=== PATIENT | female | born 1980 | race Caucasian/White ===

== ENCOUNTER 2019-05-02 14:55 | Emergency (ER) | payer BC, SELFPAY ==
--- NOTE | ~2019-05-02 | US_ITS ---
EXAMINATION: US right upper quadrant EXAM DATE: 05/02/2019 15:42 INDICATION: Right upper quadrant pain. TECHNIQUE: Multiple grayscale and Doppler images of the abdomen right upper quadrant were obtained (b y a technologist who performed the scan) and subsequently reviewed. Comparison is made to prior exami nation from 08/04/2011. FINDINGS: The pancreatic head and body are normal in appearance. The pancreatic tail is not visualized. The l iver has normal echogenicity and contour. There are no focal liver lesions identified. There is no evidence of intrahepatic biliary duct dilation. Portal venous flow was seen in the hepatopedal, nor mal direction and has normal Doppler waveform. No right-sided hydronephrosis. Common bile duct measures 5 mm, which is normal. The gallbladder wall is normal in thickness, with ex pected amount of distention. No sonographic evidence of pericholecystic fluid. There is a 2 cm gall stone. Technologist reports patient had right upper quadrant tenderness. IMPRESSION: 1. Cholelithiasis and right upper quadrant tenderness demonstrated. No pericholecystic fluid, gallbl adder wall thickening or gallbladder distention. If symptoms persist, consider HIDA scan. Reviewed, dictated and finalized at location B. MIX OPERATOR IMPRESSION: 1. Cholelithiasis and right upper quadrant tenderness demonstrated. No pericho lecystic fluid, gallbladder wall thickening or gallbladder distention. If sympt oms persist, consider HIDA scan.
[2019-05-02 14:59] VITALS: BP 144/83; PULSE 100; RESP 16; TEMP 36.8; O2SAT 99
--- NOTE | 2019-05-02 15:20 | ED.ABDPAIN ---
HPI - Abdominal Pain General Chief Complaint: Abdominal Pain Stated Complaint: flank pain Time Seen by Provider: 05/02/19 15:01 Source: patient Mode of arrival: ambulatory Limitations: no limitations History of Present Illness HPI narrative: Patient is a 38-year-old female who presents to emergency department for evaluation of abdominal pain that is been present now for the last 2 weeks off and on worse with food patient notes aching pain and is now having pain in the right CVA region patient had Dairy Murray today and notes that the pain is worsened and now has associated nausea. Patient also notes feeling dizzy. Patient has taken Tums with no improvement Related Data Allergies Allergy/AdvReac Type Severity Reaction Status Date / Time naproxen Allergy Unknown hallucinati Verified 05/02/19 17:01 ons prednisone Allergy Unknown Skin Verified 05/02/19 17:01 Reaction No Known Allergies Allergy Verified 05/02/19 17:01 Review of Systems Review of Systems: All systems reviewed & are unremarkable except as noted in HPI and below PMFSH Past Medical History Medical History (Updated 05/02/19 @ 17:52 by Corey Benjamin PA-C) Obesity Family History Family History Father Diabetes mellitus Family history of hypercholesterolemia Hypertension Family history of cardiovascular disease Acute myocardial infarction Mother Hypertension Grandparent Acute myocardial infarction, Onset Age: 39 Cerebrovascular accident Carcinoma of colon Family history of malignant neoplasm of breast Social History Social History Smoking status: Never smoker Alcohol intake: current Exam Narrative: Exam Narrative: GENERAL: Well-appearing, obese, and in no acute distress. HEAD: Normocephalic, atraumatic. EYES: PERRLA and EOMI. ENT: Nares clear, no rhinorrhea or epistaxis. Mucous membranes moist. Oropharynx without tonsillar hypertrophy exudate or other lesions. CHEST: Clear to auscultation. No respiratory distress. No wheezes rales or rhonchi HEART: Regular rate and rhythm. No murmur heard. Normal peripheral pulses. ABDOMEN: Soft, right upper quadrant abdominal tenderness to palpation, nondistended, normal active bowel sounds. EXTREMITIES: Normal range of motion. No edema. SKIN: Warm, dry, no rash. NEURO: No focal deficits. Alert and oriented x3. PSYCH: Normal mood and affect. Course Course Emergency Course: Patient in the room in no distress aware of case findings treatment plan and diagnosis agreeing to follow-up as directed or to return if symptoms worsen or concerns Consultations Consultation #1: Discussed case with general surgery who will follow patient in clinic Vital Signs Vital signs: Vital Signs Temperature 98.2 F 05/02/19 14:59 Pulse Rate 100 05/02/19 14:59 Respiratory Rate 16 05/02/19 14:59 Blood Pressure 144/83 H 05/02/19 14:59 Pulse Oximetry 99 05/02/19 14:59 Temperature 98.2 F 05/02/19 14:59 Pulse Rate 86 05/02/19 17:14 Respiratory Rate 18 05/02/19 17:14 Blood Pressure 142/73 H 05/02/19 17:14 Pulse Oximetry 99 05/02/19 17:14 MDM - Abdominal Pain MDM Narrative Medical decision making narrative: Patient in the room without high risk changes in the blood work or imaging resting comfortably will follow with general surgery. Patient afebrile nontoxic-appearing without emesis provided with reasons to return Lab Data Result diagrams: 05/02/19 15:13 05/02/19 15:16 Labs: Lab Results 05/02/19 05/02/19 05/02/19 Range/Units 15:13 15:16 15:16 WBC 13.1 H (4.5-10.0) K/mm3 RBC 4.89 (4.2-5.4) M/mm3 Hgb 14.8 (12.0-15.0) g/dL Hct 44.6 (37.0-47.0) % MCV 91.2 (80-100) fl MCH 30.3 (26-34) pg MCHC 33.2 (32-36) g/dl RDW 12.7 (11.5-14.5) % Plt Count 397 H (150-375) k/mm3 MPV 10.5 H (7.4-10
--- NOTE | 2019-05-02 15:21 | PC.NURSE ---
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
[2019-05-02] MEDS: MORPHINE SULFATE 4 MG/ML INJ IV PUSH (15:25)
[2019-05-02] MEDS: LIDOCAINE HCL 2% VISC SOLN 15 ML UDC 20 ML PO (15:29)
[2019-05-02] MEDS: LACTATED RINGERS 1,000 ML 999 ML IV CONT (15:30)
[2019-05-02] MEDS: ONDANSETRON INJ 4 MG/2 ML VIAL IV PUSH (15:30)
[2019-05-02 15:34] LABS: Alanine Aminotransferase 25 U/L (4-35); Albumin Level 4.9 g/dL (3.5-5.1); Alkaline Phosphatase 55 U/L (38-126); Aspartate Amino Transferase 30 U/L (14-36); Bilirubin,Total 0.5 mg/dL (0.2-1.3); Blood Urea Nitrogen 10 mg/dL (7-17); Calcium 9.7 mg/dL (8.4-10.2); Carbon Dioxide 26 mmol/L (22-30); Chloride 98 mmol/L (98-107); Estimated CRCL calculation 96 ml/min; Estimated Glomerular Filt Rate > 60; Glucose 107 mg/dL (65-105); Lipase 91 U/L (23-300); Potassium 3.9 mmol/L (3.4-5.0); Sodium 139 mmol/L (137-145)
[2019-05-02 15:35] LABS: Lactic Acid Reflex 1.3 mmol/L (0.7-2.1)
--- NOTE | 2019-05-02 16:00 | PC.NURSE ---
pt unable to void at this time.
[2019-05-02 16:11] LABS: Basophils Absolute Auto 0.1 K/mm3 (0.0-0.1); Basophils Percent Auto 0.9 % (0.2-1.2); Eosinophils Absolute Auto 0.4 K/mm3 (0-0.3); Eosinophils Percent Auto 3.4 % (0-4.4); Hematocrit 44.6 % (37.0-47.0); Hemoglobin 14.8 g/dL (12.0-15.0); Immature Granulocyte Absolute 0.06 K/mm3 (0.00-0.031); Immature Granulocyte Percent A 0.5 % (0-0.5); Lymphocytes Absolute Auto 5.23 K/mm3 (0.9-3.2); Lymphocytes Percent Auto 39.9 % (18.3-44.2); Mean Corpuscular HGB Conc 33.2 g/dl (32-36); Mean Corpuscular Hemoglobin 30.3 pg (26-34); Mean Corpuscular Volume 91.2 fl (80-100); Mean Platelet Volume 10.5 fl (7.4-10.4); Monocytes Absolute Auto 1.1 K/mm3 (0.1-0.6); Monocytes Percent Auto 8.6 % (2.6-8.5); Neutrophils Absolute Auto 6.1 K/mm3 (1.3-6.7); Neutrophils Percent Auto 46.7 % (45.5-73.1); Platelet Count Result 397 k/mm3 (150-375); Red Blood Count 4.89 M/mm3 (4.2-5.4); Red Cell Distribution Width 12.7 % (11.5-14.5); White Blood Count 13.1 K/mm3 (4.5-10.0)
--- NOTE | 2019-05-02 16:39 | PC.NURSE ---
pt ab w/ yaw gait to provided a urine sample.
[2019-05-02 16:59] LABS: Add Urine Microscopic? YES; Appearance Urine Cloudy (Clear); Bacteria Urine Trace /hpf; Bilirubin Urine Negative (Negative); Blood Urine Negative (Negative); Color Urine Straw (Yellow); Glucose Urine UA Negative (Negative); Ketones Urine Negative (Negative); Leukocyte Esterase Ur 1+ LEU/UL (Negative); Mucus Urine Rare /lpf; Nitrate Urine Negative (Negative); Protein Urine Negative (Negative); Specific Grav Ur 1.008 (1.001-1.035); Squamous Epithelial Cell Urine Many /hpf (Few); Urobilinogen Urine Negative mg/dL (<2.0)
--- NOTE | 2019-05-02 16:59 | PC.NURSE ---
pt asking about results. edp notified.
[2019-05-02] MEDS: MORPHINE SULFATE 2 MG/ML INJ IV PUSH (17:11)
[2019-05-02 17:14] VITALS: BP 142/73; PULSE 86; RESP 18; O2SAT 99
--- NOTE | 2019-05-02 17:27 | PC.NURSE ---
called to patient room. pt c/o hives to the left arm after getting morphine. hives noted to the left arm, pt denies sob. hali yanez notified.
[2019-05-02] MEDS: FAMOTIDINE 20 MG/2 ML VIAL IV PUSH (17:33)
--- NOTE | 2019-05-02 17:54 | PC.NURSE ---
pt given second dose of morphine iv. pt called out reporting she had hives. edp notified of pt reaction. reaction documented in pt's chart.
[2019-05-02 18:00] VITALS: BP 123/68; PULSE 87; RESP 17; O2SAT 96
== END 2019-05-02 18:00 | disposition home or self-care (01) ==
PROVIDERS: Emergency Medicine Emergency Medical Services; Emergency Provider Emergency Medicine
DX: K80.20 Calculus of gallbladder without cholecystitis without obstruction (principal)
CPT/HCPCS: 36415; 76705; 80053; 81001; 81025; 83605; 83690; 85025; 87077; 87086; 87088; 87186; 96361; 96374; 96375; 96376; 99284; J0131; J1200; J2270; J2405; J7120

== ENCOUNTER 2019-05-05 10:15 | Outpatient (CLI) | payer BC, SELFPAY ==
[2019-05-05 10:57] LABS: Amylase 47 U/L (30-110)
== END 2019-05-05 10:16 | disposition home or self-care (01) ==
PROVIDERS: PCP Physician Assistant; Visit Provider Surgery
DX: K80.20 Calculus of gallbladder without cholecystitis without obstruction (principal); Z01.812 Encounter for preprocedural laboratory examination
CPT/HCPCS: 36415; 82150; 86850; 86900; 86901

== ENCOUNTER 2019-05-09 00:42 | Day surgery (SDC) | payer BC, SELFPAY ==
[2019-05-05 09:43] VITALS: BMI 38.6
[2019-05-09] VITALS (11 sets, daily range): BP systolic 103–127; BP diastolic 58–65; PULSE 73–86; RESP 10–24; TEMP 36.2–37.5; O2SAT 93–100
--- NOTE | 2019-05-09 09:32 | WPDANESEPPF ---
Anes - Initial Pre Proc Eval Procedure: Operation Date: 05/09/19 15:00 Proposed Procedures p Laparoscopic Cholecystectomy, Possible Open - Mesfin Wong DO Date/Time: 05/09/19 09:32 Surgeon: Mesfin Wong DO Pre Op Diagnosis: Symptomatic Cholelithiasis Patient Data Age: 38 Gender: F Height: 1.63 m Weight: 102.06 kg Allergies Allergy/AdvReac Type Severity Reaction Status Date / Time morphine Allergy Mild Hives Verified 05/09/19 12:56 naproxen AdvReac Mild hallucinati Verified 05/09/19 12:56 ons Home Medications Medication Instructions Recorded Confirmed Type hydrocodone-acetaminophen 1 tablet PO Q6H PRN #20 tablet 05/02/19 05/09/19 Rx ondansetron 4 mg PO Q6H #7 tablet 05/02/19 05/05/19 Rx echinacea 380 mg capsule 380 mg PO 2XW 05/03/19 05/09/19 History hydroxyzine HCl 10 mg tablet 10 mg PO TID PRN 05/03/19 05/05/19 History metformin 500 mg tablet 500 mg PO DAILY 05/03/19 05/09/19 History prenat.vits,chiara,wly-vhym-rlpke 1 tablet PO 2XW 05/03/19 05/09/19 History Lacto.acidophilus-Bif.animalis 1 cap PO 3XW 05/05/19 05/09/19 History [Daily Probiotic] cranberry fruit concentrate [Azo 250 mg PO 3XW 05/05/19 05/09/19 History Cranberry] fenugreek seed extract 500 mg PO 2XW 05/05/19 05/09/19 History plant stanol roseanne [Cholest Off] 450 mg PO DAILY 05/05/19 05/09/19 History Patient hx anesthesia problems: none Family hx anesthesia problems: none PMFSH Past Medical History Medical History (Updated 05/09/19 @ 09:33 by Marco Antonio Jacinto MD) Anxiety Depression GERD (gastroesophageal reflux disease) Hyperlipidemia Obesity PCOS (polycystic ovarian syndrome) Surgical History Surgical History History of carpal tunnel release of both wrists 05/2018 and 08/2018 History of surgery on arm As a child Labral tear of right hip joint Underwent surgical repair in 05/2009 Social History Social History Smoking status: Never smoker Alcohol intake: current Gender identity (if verbalized by the patient): Female Anes - Eval Final PreProcedure Day of Procedure 05/09/19 09:32 Patient weight: obese Heart: regular rate and rhythm Lungs: clear to auscultation and normal air movement Airway: Mallampati scale class II Neurological: alert and oriented Last oral intake: >/= 8 hours ASA classification: III Emergent: no Anesthetic plan: proceed Anesthesia type and monitoring: general ETT Informed Consent: The patient's anesthetic plan and its attendant risks and benefits were discussed with the patient/family/POA. Questions were solicited and answers provided to the satisfaction of the patient/family/POA.
[2019-05-09] MEDS: LACTATED RINGERS 1,000 ML 30 ML IV CONT ×2 (13:15→15:39)
[2019-05-09] MEDS: IBUPROFEN IV 800 MG/200 ML 800 MG/200 ML BAG 400 MG IVPB (13:29)
--- NOTE | 2019-05-09 14:22 | WPDHPUPDATE1 ---
History and Physical Update Update Date/Time: 05/09/19 14:22 History and Physical has been reviewed, including an updated exam of the patient. There are NO changes in the patient's condition. Risks, benefits, and alternatives have been discussed and questions answered. Patient agrees to proceed with procedure.
--- NOTE | 2019-05-09 14:31 | SUR.PREOP ---
Up to bathroom.
[2019-05-09] MEDS: ceFAZolin 2 GM/D5W 50 ML 2 GM/50 ML BAG IVPB (14:38)
[2019-05-09] MEDS: BUPIVACAINE/EPINEPHRINE 0.5% 30 ML VIAL INFILTRATE (14:55)
--- NOTE | 2019-05-09 15:37 | PM.PROC ---
Procedure Note - Detailed Date of procedure: 05/09/19 Pre-op diagnosis: Symptomatic Cholelithiasis Post-op diagnosis: same Procedure performed: Laparoscopic Cholecystectomy Description of procedure: Procedure as well as risks, benefits, and alternatives were discussed with patient. Written consent was obtained and placed in chart prior to procedure. The patient was brought back to surgical suite. Patient was placed in supine position on operating table. Time-out was done to confirm patient and procedure. Patient was then intubated by the anesthesia department. Abdomen was prepped and draped in sterile fashion using chlorhexidine prep. 0.5% bupivacaine with epinephrine was infiltrated at each site of incision. A 5 millimeter incision was made near the umbilicus, and a 5 millimeter Optiview trocar was advanced through the abdominal layers under direct visualization. Once inside the abdominal cavity, carbon dioxide was insufflated to create a pneumoperitoneum. The camera was inserted and the abdomen was inspected. No immediate abnormalities were identified. The patient was placed in reverse Trendelenburg position and rotated slightly to the left. An 11 millimeter incision was made in the subxiphoid region, and an 11 millimeter trocar was inserted under direct visualization. Two 5 millimeter incisions were made in the right upper quadrant, and two 5 millimeter trocars were inserted under direct visualization. The gallbladder was identified and grasped at the fundus and retracted superiorly. It was then grasped at the infundibulum retracted laterally. Careful dissection around the neck of the gallbladder was performed using blunt dissection with a [place] grasper and hook electrocautery. The cystic duct was identified, and a window was created behind it. The cystic artery was also identified and a window was created behind it. The critical view of safety was identified, visualizing the cystic duct running directly into the neck of the gallbladder, and the cystic artery running directly into the wall of the gallbladder. A 5 millimeter clip pipe insulator was then used to place 2 clips proximally and 1 clip distally on both the cystic duct and cystic artery. They were then both transected using endoscopic scissors. Once safely away from the iggy hepatitis, the gallbladder was dissected free from the liver bed using hook electrocautery. Hemostasis was achieved along the way. The gallbladder was removed completely and then removed through the subxiphoid port. The liver bed was then inspected. Hemostasis appeared adequate, and our clips appeared secure. The area was gently irrigated with sterile saline. No other abnormalities were seen. The patient was flattened out in bed, and 1 final inspection was made around the abdominal cavity. The subxiphoid port was removed, and a Elio Rasheeda cone was used to approximate the fascia with an 0-Vicryl simple interrupted suture. The remaining ports were then removed under direct visualization, the camera was removed, and the pneumoperitoneum was released. The skin of the incisions was approximated using 4-0 Monocryl subcuticular sutures. Exofin glue was applied on top. The patient was then awakened from anesthesia, extubated, and transferred to recovery. Anesthesia: GETA and local (0.5% bupivicaine with epi) Surgeon: Mesfin Wong DO Estimated blood loss (mL): 5 Drains: No Packing: No Pathology: yes Complications: No immediate complications Condition: stable (Patient tolerated procedure well, and is currently resting comfortably in recovery.) Disposition: same day Findings: This is a 38-year-old woman who presented with a recent finding of cholelithiasis. She presented to the emergency department 1 week ago and was complaining of epigastric and right upper quadrant pain after eating at that time. Ultrasound in the emergency department showed evidence of cholelithiasis without evidence of gallbladder wall thick
[2019-05-09] MEDS: ONDANSETRON INJ 4 MG/2 ML VIAL IV PUSH (16:00)
[2019-05-09] MEDS: SCOPOLAMINE 1.5 MG PATCH TRANSDERM (16:30)
[2019-05-09] MEDS: HALOPERIDOL LACTATE 5 MG/ML VIAL 1 MG IV PUSH (16:41)
--- NOTE | 2019-05-09 17:09 | SUR.PHASEI ---
1708 UPDATED FAMILY IN WAITING ROOM
--- NOTE | 2019-05-09 17:10 | SUR.PHASEI ---
1610 PT VERY NAUSEATED, NOTIFIED DR WHALEN, ORDER FOR A SCOPALAMINE PATCH, 1MG IV HALDOL. 1710 PT DOING BETTER WITH NAUSEA
== END 2019-05-09 18:42 | disposition home or self-care (01) ==
PROVIDERS: PCP Physician Assistant; Visit Provider Surgery
PROC: 0FT44ZZ Resection of Gallbladder, Percutaneous Endoscopic Approach (ICD-10-PCS; CPT 47562; principal; 2019-05-09 15:00)
DX: K80.10 Calculus of gallbladder with chronic cholecystitis without obstruction (principal); E78.5 Hyperlipidemia, unspecified; K21.9 Gastro-esophageal reflux disease without esophagitis; E28.2 Polycystic ovarian syndrome; F41.8 Other specified anxiety disorders; Z79.84 Long term (current) use of oral hypoglycemic drugs; E66.9 Obesity, unspecified; Z68.38 Body mass index [BMI] 38.0-38.9, adult
CPT/HCPCS: 47562; 88304; A9270; J0690; J1100; J1630; J1741; J2250; J2405; J2704; J2710; J3010; J7030; J7120

== ENCOUNTER 2019-11-22 08:08 | Outpatient (CLI) | payer BC, SELFPAY ==
--- NOTE | ~2019-11-22 | US_ITS ---
US retroperitoneal comp 11/22/2019 09:03 Procedure: Realtime transabdominal ultrasound of the kidneys and bladder. Indication: Acute flank pain Comparison: No prior studies for comparison. Findings: Renal echotexture is normal bilaterally without hydronephrosis, contour deforming mass or r enal calculus. The right kidney measures 12.5 cm and left kidney measures 10.8 cm. Bladder within no rmal limits. Impression: 1: Unremarkable renal ultrasound. No stones, masses or hydronephrosis. Reviewed, dictated and finalized at location B. Impression: 1: Unremarkable renal ultrasound. No stones, masses or hydronephrosis.
== END 2019-11-22 08:09 | disposition home or self-care (01) ==
PROVIDERS: PCP Family Medicine; Visit Provider Nurse Practitioner Adult Health
DX: R10.9 Unspecified abdominal pain (principal)
CPT/HCPCS: 76770

== ENCOUNTER 2020-03-26 14:57 | Outpatient (CLI) | payer BC, SELFPAY ==
--- NOTE | ~2020-03-26 | XR_ITS ---
EXAMINATION: XR shoulder RT min 2V DATE: 03/26/2020 15:20 INDICATION: Right shoulder pain. TECHNIQUE: 4 views of right shoulder were obtained. COMPARISON: Right shoulder radiographs 04/12/2009 FINDINGS: Bone alignment is normal. No fracture. Joint spaces are well maintained. IMPRESSION: 1. Normal right shoulder. Reviewed, dictated and finalized at location B. SENIOR RESEARCH SCIENTIST IMPRESSION: 1. Normal right shoulder.
== END 2020-03-26 14:58 | disposition home or self-care (01) ==
PROVIDERS: PCP Family Medicine; Visit Provider Physician Assistant Medical
DX: M25.511 Pain in right shoulder (principal)
CPT/HCPCS: 73030

== ENCOUNTER 2020-05-04 10:36 | Outpatient (CLI) | payer BC, SELFPAY ==
--- NOTE | ~2020-05-04 | MR_ITS ---
EXAMINATION: MR shoulder RT wo con DATE: 05/04/2020 11:25 INDICATION: Right shoulder pain. TECHNIQUE: Magnetic resonance imaging (MRI) of the right shoulder was performed without intravenous c ontrast. Sequences included axial PD-weighted FS FSE, coronal oblique PD-weighted FS FSE and T2-weigh abebe FS FSE, and sagittal oblique T2-weighted FS FSE and T1-weighted FSE. COMPARISON: Right shoulder radiographs 03/26/2020 FINDINGS: Coracoacromial arch: The acromion undersurface is flat in morphology (type I). There is mild acromioclavicular joint osteo arthritis. There is mild subacromial/subdeltoid bursitis. Rotator cuff: There is mild supraspinatus and infraspinatus tendinopathy. Teres minor tendon is normal. There is mi ld subscapularis tendinopathy. There is no asymmetric fatty atrophy of the rotator cuff muscle bellie s. Biceps tendon and glenoid labrum: Biceps tendon is in bicipital groove. Intra-articular biceps tendon is normal. The glenoid labrum is normal. Fluid: There is no glenohumeral joint effusion. Bones/cartilage: The glenoid cartilage is normal. The humeral head cartilage is normal. IMPRESSION: 1. Mild acromioclavicular joint osteoarthritis. 2. Mild rotator cuff tendinopathy. No tear. 3. Mild subacromial/subdeltoid bursitis. Reviewed, dictated and finalized at location A. ESTATE LISTING CONSULTANT
== END 2020-05-04 10:37 | disposition home or self-care (01) ==
PROVIDERS: PCP Family Medicine; Visit Provider Orthopaedic Surgery
DX: M19.011 Primary osteoarthritis, right shoulder (principal); M75.51 Bursitis of right shoulder
CPT/HCPCS: 73221

== ENCOUNTER 2020-12-05 18:30 | Emergency (ER) | payer BC, SELFPAY ==
--- NOTE | ~2020-12-05 | XR_ITS ---
EXAMINATION: XR hand RT min 3V INDICATION: Right hand pain TECHNIQUE: Three views of the right hand are obtained. COMPARISON: None available FINDINGS: There is no fracture, dislocation, or subluxation. The bones, soft tissues, and joint space s are normal. IMPRESSION: 1. No acute osseous abnormality. Reviewed, dictated and finalized at location A.
[2020-12-05 18:55] VITALS: BP 130/81; PULSE 84; RESP 16; TEMP 36.6; O2SAT 99
[2020-12-05 20:16] LABS: Basophils Absolute Auto 0.1 K/mm3 (0.0-0.1); Basophils Percent Auto 0.7 % (0.2-1.2); Eosinophils Absolute Auto 0.5 K/mm3 (0-0.3); Eosinophils Percent Auto 3.7 % (0-4.4); Hematocrit 42.3 % (37.0-47.0); Hemoglobin 14.3 g/dL (12.0-15.0); Immature Granulocyte Absolute 0.05 K/mm3 (0.00-0.031); Immature Granulocyte Percent A 0.4 % (0-0.5); Lymphocytes Absolute Auto 4.49 K/mm3 (0.9-3.2); Lymphocytes Percent Auto 33.2 % (18.3-44.2); Mean Corpuscular HGB Conc 33.8 g/dl (32-36); Mean Corpuscular Hemoglobin 31.2 pg (26-34); Mean Corpuscular Volume 92.2 fl (80-100); Mean Platelet Volume 10.2 fl (7.4-10.4); Monocytes Absolute Auto 0.8 K/mm3 (0.1-0.6); Monocytes Percent Auto 6.2 % (2.6-8.5); Neutrophils Absolute Auto 7.5 K/mm3 (1.3-6.7); Neutrophils Percent Auto 55.8 % (45.5-73.1); Platelet Count Result 390 k/mm3 (150-375); Red Blood Count 4.59 M/mm3 (4.2-5.4); Red Cell Distribution Width 12.8 % (11.5-14.5); White Blood Count 13.5 K/mm3 (4.5-10.0)
[2020-12-05 20:24] LABS: Alanine Aminotransferase 27 U/L (4-35); Alkaline Phosphatase 59 U/L (38-126); Anion Gap 13 mmol/L (8-16); Aspartate Amino Transferase 28 U/L (14-36); Bilirubin,Total 0.5 mg/dL (0.2-1.3); Blood Urea Nitrogen 17 mg/dL (7-17); Calcium 9.6 mg/dL (8.4-10.2); Carbon Dioxide 24 mmol/L (22-30); Chloride 101 mmol/L (98-107); Estimated CRCL calculation 84 ml/min; Estimated Glomerular Filt Rate > 60; Glucose 102 mg/dL (65-110); Potassium 3.8 mmol/L (3.4-5.0); Sodium 138 mmol/L (137-145)
--- NOTE | 2020-12-05 20:38 | ED.ANIMALBIT ---
HPI - Animal Bite General Chief Complaint: Animal Bite Stated Complaint: Cat Bite Time Seen by Provider: 12/05/20 20:36 Source: RN notes reviewed History of Present Illness HPI narrative: Patient presents emergency department from home for cat bite. Patient states that she was going to put her cat down this morning and was there given to the anesthetic the patient since cat had turned and bit her patient has puncture wound is in the thenar eminence of the right hand as well as the dorsal aspect of the right base of the thumb states she initially had bleeding from the wound and gone to her PCP immediately after and was given a tetanus shot and was given Augmentin 875 mg. She states that she took 1 dose this morning approximately 9 AM and another dose approximately 5:40 PM today so was ibuprofen she came in this evening because she is still having tenderness and pain to the area as well as a mild amount of purulent drainage from the wound over the dorsal hand she denies any fevers or chills states that the thumb feels stiff in this region but has no pain to the distal thumb or any other fingers Related Data Home Medications Medication Instructions Recorded Confirmed metformin 500 mg tablet 500 mg PO DAILY 05/03/19 12/05/20 prenat.vits,chiara,oxx-lnss-slzfg 1 tablet PO 2XW 05/03/19 12/05/20 Azo Cranberry 250 mg PO 3XW 05/05/19 12/05/20 Cholest Off 450 mg PO DAILY 05/05/19 12/05/20 Daily Probiotic 1 cap PO 3XW 05/05/19 12/05/20 cholecalciferol (vitamin D3) 50 50 mcg PO DAILY 04/09/20 12/05/20 mcg (2,000 unit) capsule Allergies Allergy/AdvReac Type Severity Reaction Status Date / Time morphine Allergy Mild Hives Verified 12/05/20 10:39 naproxen AdvReac Mild hallucinati Verified 12/05/20 10:39 ons Review of Systems Review of Systems: Gen.: Denies fevers or chills Musculoskeletal: See HPI Neuro: Denies numbness, tingling, weakness Skin: Denies rash Endo: Denies DM PMFSH Past Medical History Medical History (Updated 12/05/20 @ 20:42 by Josué Larry DO) Anxiety Depression GERD (gastroesophageal reflux disease) Hyperlipidemia Obesity PCOS (polycystic ovarian syndrome) Surgical History Surgical History History of carpal tunnel release of both wrists 05/2018 and 08/2018 History of surgery on arm As a child Hx of cholecystectomy (~05/2019) Labral tear of right hip joint Underwent surgical repair in 05/2009 Family History Family History Father Diabetes mellitus Family history of hypercholesterolemia Hypertension Family history of cardiovascular disease Acute myocardial infarction Mother Hypertension Grandparent Acute myocardial infarction, Onset Age: 39 Cerebrovascular accident Carcinoma of colon Family history of malignant neoplasm of breast Social History Social History Alcohol intake: current Alcohol use details: Drinks 1 bottle of wine over 1 to 2 week time 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[employer]) Gender identity (if verbalized by the patient): Female Exam Narrative: APPEARANCE: No acute distress, nontoxic, resting in bed Eyes: EOMI HEENT: Normocephalic, atraumatic, RESPIRATORY: No respiratory distress MUSCULOSKELETAl: Tenderness to palpation over the right thenar eminence with localized erythema present that is not stent distally into the thumb or more proximal to the wrist puncture wound is present with no purulent drainage or bleeding at this time there is a dorsal puncture wound over the dorsal thumb in the same region of the thenar eminence that has mild surrounding erythema with no discharge at this time there is no tenderness of the first MCP or IP joint, pain with flexion of the first MCP joint no pain with flexion of the first IP joint no tenderness of the digits 2 t
[2020-12-05] MEDS: ACETAMINOPHEN 500 MG TABLET 1000 MG PO (20:43)
== END 2020-12-05 21:08 | disposition home or self-care (01) ==
PROVIDERS: Emergency Provider Emergency Medicine; PCP Family Medicine
DX: S61.451A Open bite of right hand, initial encounter (principal); K21.9 Gastro-esophageal reflux disease without esophagitis; E78.5 Hyperlipidemia, unspecified; E28.2 Polycystic ovarian syndrome; E66.9 Obesity, unspecified; Z68.37 Body mass index [BMI] 37.0-37.9, adult; Z79.84 Long term (current) use of oral hypoglycemic drugs; W55.01XA Bitten by cat, initial encounter
CPT/HCPCS: 29130; 36415; 73130; 80053; 85025; 87040; 99283; A9270

== ENCOUNTER 2021-08-18 10:27 | Emergency (ER) | payer BC, SELFPAY ==
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
[2021-08-18 10:33] VITALS: BP 132/79; PULSE 89; RESP 16; O2SAT 100
--- NOTE | 2021-08-18 10:53 | ED.URI ---
HPI - URI/Sore Throat General Chief Complaint: Upper Respiratory Infection Stated Complaint: covid positive, chest pain,back pain Time Seen by Provider: 08/18/21 10:53 Source: patient Mode of arrival: ambulatory Limitations: no limitations History of Present Illness HPI Narrative: 40 yo F presents with c/o cough since 08/05. Was seen at an and given zpak and albuterol inhaler. At that time tested neg for covid. Did home test 08/09 and tested positive. Worked from home last week. Today c/o rib pain, continued cough and fatigue. Tried to go to work today but too tired. Reports pain to R lower lung lobe where i had pneumonia in 2011 . Taking mucinex, sudafed and ibuprofen with no relief. No fevers. Speaking in full sentences. States i just want something to make this all go away . Does not feel that she can work this week due to the way she is feeling. States feels like lungs not fully expanding but not really using inhaler . All systems reviewed and negative except as noted above. Related Data Home Medications Medication Instructions Recorded Confirmed metformin 500 mg tablet 500 mg PO DAILY 05/03/19 08/18/21 prenat.vits,chiara,[id number]-[id number] 1 tablet PO 2XW 05/03/19 08/18/21 cranberry fruit concentrate 250 mg 250 mg PO 3XW 05/05/19 08/18/21 chewable tablet (Azo Cranberry) plant stanol roseanne 450 mg tablet 450 mg PO DAILY 05/05/19 08/18/21 (Cholest Off) Allergies Allergy/AdvReac Type Severity Reaction Status Date / Time morphine Allergy Mild Hives Verified 08/18/21 10:40 naproxen AdvReac Mild hallucinati Verified 08/18/21 10:40 ons Review of Systems Review of Systems: CONSTITUTIONAL: Denies fever, chills, or sweats. Reports fatigue EYES: Denies visual changes, redness, or discharge. ENT: Denies rhinorrhea, congestion, sore throat, or otalgia. CARDIOVASCULAR: Denies chest pain, palpitations, or edema. RESPIRATORY: Reports cough. Denies dyspnea. GASTROINTESTINAL: Denies abdominal pain, nausea, vomiting, or diarrhea. GENITOURINARY: Denies dysuria or hematuria. SKIN: Denies rash or itching. MUSCULOSKELETAL: Denies back pain, joint pain, or myalgia. NEUROLOGIC: Denies headache, numbness, or weakness. PSYCHIATRIC: Denies anxiety or depression. All other systems reviewed are negative, except as documented in HPI. [facility] Past Medical History Medical History (Updated 08/18/21 @ 11:06 by Diana Domingo NP) Anxiety Depression GERD (gastroesophageal reflux disease) Hyperlipidemia Obesity PCOS (polycystic ovarian syndrome) Surgical History Surgical History History of carpal tunnel release of both wrists 05/2018 and 08/2018 History of surgery on arm As a child Hx of cholecystectomy (~05/2019) Labral tear of right hip joint Underwent surgical repair in 05/2009 Family History Family History Father Diabetes mellitus Family history of hypercholesterolemia Hypertension Family history of cardiovascular disease Acute myocardial infarction Mother Hypertension Grandparent Acute myocardial infarction, Onset Age: 39 Cerebrovascular accident Carcinoma of colon Family history of malignant neoplasm of breast Social History Social History Alcohol intake: current Alcohol use details: Drinks 1 bottle of wine over 1 to 2 week time 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 There is no relevant family history pertinent to the presenting complaint. Exam Narrative: GENERAL: This is a well-nourished, well-developed patient, in no apparent distress. HEAD: normocephalic, atraumatic. EYES: PERRL. Sclera clear/white. Vision is grossly intact.
== END 2021-08-18 11:32 | disposition home or self-care (01) ==
PROVIDERS: Emergency Provider Nurse Practitioner Family; PCP Family Medicine
DX: R05.9 Cough, unspecified (principal); R53.83 Other fatigue; Z86.16 Personal history of COVID-19; K21.9 Gastro-esophageal reflux disease without esophagitis; E78.5 Hyperlipidemia, unspecified; E66.9 Obesity, unspecified; Z68.39 Body mass index [BMI] 39.0-39.9, adult; E28.2 Polycystic ovarian syndrome
CPT/HCPCS: 71046; 99213; G0463

== ENCOUNTER 2021-08-22 07:59 | Outpatient (CLI) | payer BC, SELFPAY ==
--- NOTE | ~2021-08-22 | MM_ITS ---
EXAMINATION: MM screening ankur BI w saray HISTORY: Screening TECHNIQUE: Craniocaudal and mediolateral oblique 3-D tomosynthesis images were obtained and synthetic 2-D images were generated. CAD analysis was submitted and interpreted. COMPARISON: No prior mammogram is available for comparison at this institution. BREAST PARENCHYMAL COMPOSITION: Breast composed of scattered areas of fibroglandular density FINDINGS: There is no mammographic evidence for malignancy in the right breast. There are focal asymm etries in the lower central aspect of the left breast. IMPRESSION: 1. Left breast asymmetries, lower central aspect of the left breast. 2. Additional mammographic views and possible breast ultrasound are recommended. BI-RADS Category 0: Incomplete: Needs additional imaging evaluation. . Reviewed, dictated and finalized at location A. IMPRESSION: 1. Left breast asymmetries, lower central aspect of the left breast. 2. Additional mammographic views and possible breast ultrasound are recommended . BI-RADS Category 0: Incomplete: Needs additional imaging evaluation. .
== END 2021-08-22 08:00 | disposition home or self-care (01) ==
LOC: ANHIMG 08:02
PROVIDERS: PCP Family Medicine; Visit Provider Nurse Practitioner
DX: Z12.31 Encounter for screening mammogram for malignant neoplasm of breast (principal); R92.8 Other abnormal and inconclusive findings on diagnostic imaging of breast
CPT/HCPCS: 77063; 77067

== ENCOUNTER 2021-09-05 13:57 | Outpatient (CLI) | payer BC, SELFPAY ==
--- NOTE | ~2021-09-05 | MMUS_ITS ---
EXAMINATION: MM diagnostic ankur LT w saray, US breast LT limited HISTORY: Follow-up left breast asymmetry TECHNIQUE: Additional 3-D tomosynthesis images of the left breast were performed and synthetic 2-D im ages were generated. CAD analysis was submitted and interpreted. High resolution Limited left breast ultrasound was performed. COMPARISON: 08/22/2021 BREAST PARENCHYMAL COMPOSITION: Breast composed of scattered areas of fibroglandular density FINDINGS: MAMMOGRAPHIC FINDINGS: The focal areas of asymmetry inferiorly in the left breast are less dense with spot compression views . No discrete mass or architectural distortion is identified. No suspicious calcifications. ULTRASOUND: Limited left breast ultrasound: At 3:00, 4 cm from the nipple, there is an oval hypoechoic mass with internal cysts, possibly a cluster of microcysts measuring up to 10 mm. At 3:00, 7 cm from the nipple there is a 7 mm cyst. At 4:00, 4 cm from the nipple there is a 7 mm intramammary lymph node. At 6:00 , 4 cm from the nipple, there is an oval hypoechoic mass without posterior Uterus 6 or internal vascularity. Parallel orientation. This mass measures 8 mm greatest dimension an d is most likely benign intramammary lymph node or cluster of microcysts. At 8:00, 5 cm from the nipp le there is a cyst. IMPRESSION: 1. Probable benign left breast masses. 2. Recommend 6 month follow-up diagnostic left mammogram and ultrasound. BI-RADS category 3, probably benign findings. Reviewed, dictated and finalized at location A. IMPRESSION: 1. Probable benign left breast masses. 2. Recommend 6 month follow-up diagnostic left mammogram and ultrasound. BI-RADS category 3, probably benign findings.
== END 2021-09-05 13:58 | disposition home or self-care (01) ==
PROVIDERS: PCP Family Medicine; Visit Provider Obstetrics & Gynecology Gynecology
DX: N63.25 Unspecified lump in the left breast, overlapping quadrants (principal); R59.0 Localized enlarged lymph nodes
CPT/HCPCS: 76642; 77061; 77065; G0279

== ENCOUNTER 2022-04-03 11:11 | Outpatient (CLI) | payer OTHER, SELFPAY ==
--- NOTE | ~2022-04-03 | MMUS_ITS ---
EXAMINATION: MM diagnostic ankur LT w saray, US breast LT limited HISTORY: Follow-up left breast masses TECHNIQUE: Additional 3-D tomosynthesis images of the left breast were performed and synthetic 2-D im ages were generated. CAD analysis was submitted and interpreted. High resolution Limited left breast ultrasound was performed. COMPARISON: Comparison to multiple prior studies sequentially, with oldest reviewed study dated 08/22. BREAST PARENCHYMAL COMPOSITION: The breasts are heterogeneously dense, which may obscure small masses FINDINGS: MAMMOGRAPHIC FINDINGS: The left breast is stable. No new masses, calcifications or architectural distortion are identified. ULTRASOUND: Limited left breast ultrasound: There are multiple simple and complicated cysts of the left breast. T here is a cluster of cysts at 4:00, 6 cm from the nipple. Also at 6:00, 4 cm from the nipple there is an irregular shaped hypoechoic mass measuring 5 x 4 mm with posterior shadowing. There is a cluster of cysts at 3:00 near the nipple. IMPRESSION: 1. New irregular shaped 5 mm hypoechoic mass with posterior shadowing in the left breast at 6:00, 4 c m from the nipple. 2. Ultrasound-guided left breast biopsy recommended. BI-RADS category 4, suspicious findings. Reviewed, dictated and finalized at location A. [employer]NEY IMPRESSION: 1. New irregular shaped 5 mm hypoechoic mass with posterior shadowing in the le ft breast at 6:00, 4 cm from the nipple. 2. Ultrasound-guided left breast biopsy recommended. BI-RADS category 4, suspicious findings.
== END 2022-04-03 11:12 | disposition home or self-care (01) ==
PROVIDERS: PCP Family Medicine; Visit Provider Obstetrics & Gynecology Gynecology
DX: N63.20 Unspecified lump in the left breast, unspecified quadrant (principal); R92.8 Other abnormal and inconclusive findings on diagnostic imaging of breast
CPT/HCPCS: 76642; 77061; 77065; G0279

== ENCOUNTER 2022-04-29 17:24 | Emergency (ER) | payer OTHER, SELFPAY ==
--- NOTE | 2022-04-29 17:27 | ED.URI ---
HPI - URI/Sore Throat General Chief Complaint: Upper Respiratory Infection Stated Complaint: SORE THROAT/SWOLLEN GLANDS/CONGESITON Time Seen by Provider: 04/29/22 17:27 Source: patient and RN notes reviewed History of Present Illness HPI Narrative: Patient is a 41-year-old female who presents to urgent care with complaints of sore throat, swollen glands are congestion are and throat ear pain. Patient states that all started this morning after she stayed up late studying for a test. Patient is not taking anything [id number] for her symptoms. States that she has had chills but denies fever, nausea or vomiting. Patient also states that she was out of town recently and did go tomorrow to draw therefore possible exposure to illness. Patient states that she did have dental work done on Wednesday with several knee injections to the mouth. Patient states she still has some pain to the right lower jaw. No other acute complaints. No acute distress noted. Patient aware of the plan of care. Some parts of this dictation were generated by voice recognition software and may contain typographical and/or grammatical inaccuracies. Related Data Home Medications Medication Instructions Recorded Confirmed metformin 500 mg tablet 500 mg PO DAILY 05/03/19 04/29/22 prenat.vits,chiara,[id number] 1 tablet PO 2XW 05/03/19 04/29/22 coenzyme Q10 200 mg capsule (Co 200 mg PO DAILY 08/22/21 04/29/22 Q-10) Allergies Allergy/AdvReac Type Severity Reaction Status Date / Time morphine Allergy Mild Hives Verified 04/29/22 17:57 naproxen AdvReac Mild hallucinati Verified 04/29/22 17:57 ons Review of Systems Review of Systems: CONSTITUTIONAL: Denies fever, chills, or sweats. EYES: Denies visual changes, redness, or discharge. ENT: Reports of congestion, postnasal drainage, right otalgia and swelling going CARDIOVASCULAR: Denies chest pain, palpitations, or edema. RESPIRATORY: Denies cough or dyspnea. GASTROINTESTINAL: Denies abdominal pain, nausea, vomiting, or diarrhea. GENITOURINARY: Denies dysuria or hematuria. SKIN: Denies rash or itching. MUSCULOSKELETAL: Denies back pain, joint pain, or myalgia. NEUROLOGIC: Reports of headache All other systems reviewed are negative, except as documented in HPI. [facility] Past Medical History Medical History (Updated 04/29/22 @ 18:10 by JESSICA Camargo) Anxiety Depression GERD (gastroesophageal reflux disease) Hyperlipidemia Obesity PCOS (polycystic ovarian syndrome) Surgical History Surgical History (Updated 04/29/22 @ 18:10 by JESSICA Camargo) History of carpal tunnel release of both wrists 05/2018 and 08/2018 History of surgery on arm As a child Hx of cholecystectomy (~05/2019) Labral tear of right hip joint Underwent surgical repair in 05/2009 Family History Family History Father Diabetes mellitus Family history of hypercholesterolemia Hypertension Family history of cardiovascular disease Acute myocardial infarction Mother Hypertension Grandparent Acute myocardial infarction, Onset Age: 39 Cerebrovascular accident Carcinoma of colon Family history of malignant neoplasm of breast Social History Social History Smoking status: Never smoker Alcohol intake: current Alcohol use details: Drinks 1 bottle of wine over 1 to 2 week time Living arrangements: alone 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 There is no relevant family history pertinent to the patient complaint. Exam Narrative: GENERAL: This is a well-nourished, well-developed patient, in no apparent distress. HEAD: nor
[2022-04-29 17:36] VITALS: BP 129/83; PULSE 93; RESP 16; TEMP 36.6; O2SAT 100
== END 2022-04-29 18:10 | disposition home or self-care (01) ==
PROVIDERS: Emergency Provider Nurse Practitioner Family; PCP Family Medicine
DX: R22.0 Localized swelling, mass and lump, head (principal); Z98.818 Other dental procedure status; K21.9 Gastro-esophageal reflux disease without esophagitis; E78.5 Hyperlipidemia, unspecified; E28.2 Polycystic ovarian syndrome; E66.9 Obesity, unspecified; Z68.36 Body mass index [BMI] 36.0-36.9, adult
CPT/HCPCS: 87081; 87804; 87880; 99213; G0463

== ENCOUNTER → 2022-05-19 14:57 | Outpatient (CLI) | payer OTHER, SELFPAY ==
--- NOTE | ~2022-05-19 | MR_ITS ---
MRI of the right shoulder Technique: Axial proton-density fat-sat images, coronal proton density fat-sat and T2 fat-sat images, and sagittal T1-weighted and T2 fat-sat images were acquired. Clinical History: Pain COMPARISON: 05/04/2020 Findings: There is mild to moderate degenerative change at the AC joint. No significant subacromial s pur. Coracoclavicular, coracoacromial, and coracohumeral ligaments are intact. Supraspinatus and infraspinatus tendons are intact, with possible minimal tendinosis. No partial or f ull-thickness tear seen. Subscapularis tendon is intact with mild tendinosis. Tendon of long head of the biceps is intact. No labral tear identified. Inferior glenohumeral ligament is intact. No degenerative change or effusion of the glenohumeral join t. There is fluid distention of the subacromial/subdeltoid bursa. No muscle atrophy or edema identifi ed. IMPRESSION: Subacromial/subdeltoid bursitis. Mild rotator cuff tendinosis. No rotator cuff or labral tear seen. Reviewed, dictated and finalized at location .
== END ==
PROVIDERS: PCP Family Medicine; Visit Provider Orthopaedic Surgery
DX: M75.41 Impingement syndrome of right shoulder (principal); M25.511 Pain in right shoulder; M75.51 Bursitis of right shoulder
CPT/HCPCS: 73221

== ENCOUNTER 2022-06-29 | Day surgery (SDC) | payer OTHER, SELFPAY ==
[2022-06-18 17:08] VITALS: BMI 37.8
--- NOTE | 2022-06-18 17:41 | PC.NURSE ---
Report to the Outpatient Waiting Room, entrance under the green pavilion located off [facility], at time _0900 on date _06/29/22 . Planned Procedure Time: _1100 . Time changes happen often and if your time is changed the preop area will call you the afternoon before. - You and your visitor will be asked to self-screen and do not enter if you have any COVID symptoms. - A mask is optional within the hospital at this time. Patients may have clear liquids (water, carbonated beverages, clear teas, apple juice) until 3 hours prior to surgery with a maximum of 20 ounces. - No food from midnight until time of surgery Take the following medications with a SIP of water the morning of surgery: ___N/A DO NOT STOP ANY OF YOUR OTHER PRESCRIPTION MEDICATIONS PRIOR TO SURGERY ?EXCEPT THE FOLLOWING Medications to discontinue per physician STOP VITAMIN AND COq10 Date to take last dose__06/26/22 Please no make-up, nail [place] islander, hairspray, perfume, deodorant, or body powder the day of surgery. No jewelry (including any body piercings) or valuables the day of surgery, leave them at home. Please take a shower or bath the night before, or the morning of, surgery with an antibacterial soap. Wear comfortable, loose fitting clothing. Children are encouraged to wear pajamas. - Jewelry must be removed prior to entering the operating room. Rings and piercings that are not removed may be cut off. - The hospital will not accept responsibility for valuables. - Please leave all valuables, including medications, at home the day of surgery. If you are going home after surgery, a licensed owner operator tanker truck driver must drive you home. - NO public transportation without another adult if you receive anesthesia. - We recommend that an adult stay with you for 24 hours following discharge. - We also recommend that you do not drive, make important decision, drink alcoholic beverages, or take any drugs that were not prescribed by your health care provider for at least 24 hours after your discharge time. Follow any additional instructions given to you from your surgeon. If you or anyone in your household have experienced Covid symptoms in the past week, please notify your surgeon or the nurse liaison at the phone number below for possible testing. Telephone instructions given to _ AMANDA and asked if any additional questions and then verbalized understanding. Patient advised to call surgeon office or pre surgery nurse liaison [phone] if any additional questions.
[2022-06-29] VITALS (8 sets, daily range): BP systolic 100–131; BP diastolic 56–73; PULSE 61–89; RESP 16–20; TEMP 36.1–37; O2SAT 94–98
--- NOTE | 2022-06-29 07:29 | WPDANESEPPF ---
Anes - Initial Pre Proc Eval Procedure: Operation Date: 06/29/22 11:00 Proposed Procedures p Right Shoulder Acromioplasty, Distal Clavicle Excision - Michael Barnett MD Date/Time: 06/29/22 07:29 Surgeon: Michael Barnett MD Pre Op Diagnosis: right shoulder OA, impingement Patient Data Age: 41 Gender: F Height: 1.63 m Weight: 100 kg Allergies Allergy/AdvReac Type Severity Reaction Status Date / Time morphine Allergy Mild Hives Verified 06/29/22 10:14 naproxen AdvReac Mild hallucinati Verified 06/29/22 10:14 ons COVID-19 vaccine, mRNA, AdvReac Anaphylaxis Verified 06/29/22 10:14 [id number], L Home Medications Medication Instructions Recorded Confirmed Type metformin 500 mg tablet 500 mg PO DAILY 05/03/19 06/29/22 History prenat.vits,chiara,[id number]-[id number] 1 tablet PO 2XW 05/03/19 06/29/22 History coenzyme Q10 200 mg capsule (Co 200 mg PO DAILY 08/22/21 06/29/22 History Q-10) Patient hx anesthesia problems: none Family hx anesthesia problems: none Results Review: All pre-operative results and documents have been reviewed as part of the pre-operative evaluation. [facility] Past Medical History Medical History (Updated 06/29/22 @ 11:21 by Arsen Eugene DO) Acromioclavicular joint arthritis Anxiety Depression GERD (gastroesophageal reflux disease) Obesity PCOS (polycystic ovarian syndrome) Post covid-19 condition, unspecified Subacromial impingement of right shoulder Surgical History Surgical History History of carpal tunnel release of both wrists 05/2018 and 08/2018 History of surgery on arm As a child Hx of cholecystectomy (~05/2019) Labral tear of right hip joint Underwent surgical repair in 05/2009 Family History Family History Father Diabetes mellitus Family history of hypercholesterolemia Hypertension Family history of cardiovascular disease Acute myocardial infarction Mother Hypertension Grandparent Acute myocardial infarction, Onset Age: 39 Cerebrovascular accident Carcinoma of colon Family history of malignant neoplasm of breast Social History Social History Smoking status: Never smoker Alcohol intake: current Alcohol use details: Drinks 1 bottle of wine over 1 to 2 week time Substance use: former Substance use type: marijuana Other substance usage details: RARE EDIBLE Last use: 01/2022 Living arrangements: with family Occupation/Education: occupation 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 Informed Consent: The patient's anesthetic plan and its attendant risks and benefits were discussed with the patient/family/POA. Questions were solicited and answers provided to the satisfaction of the patient/family/POA.
[2022-06-29] MEDS: ACETAMINOPHEN 500 MG TABLET 1000 MG PO (10:35)
[2022-06-29] MEDS: LACTATED RINGERS 1,000 ML 30 ML IV CONT ×3 (10:50→14:55)
--- NOTE | 2022-06-29 11:21 | WPDANESPNB ---
Anes - Peripheral Nerve Block Date/Time: 06/29/22 11:21 I have discussed with the patient/family/POA the placement of a peripheral nerve block for post-operative pain management, including associated risks, benefits, complications, and side effects. Alternative methods of post-operative analgesia were detailed. Questions were solicited and answers provided to the satisfaction of the patient/family/POA. Time-Out: A pre-procedural Time-Out was completed immediately before starting the procedure and confirmed: Patient Identification, Site, Procedure, Patient Position and the Availability of Requisite Equipment. Clinical Indications: Acute post-operative pain management requested by the operative surgeon. Nerve Block Insertion Note Anes-nerve block: interscalene right Patient position: supine Skin prep: chlorhexidine Needle: 22 gauge, stimulating, insulated echogenic needle. Needle length: 50 mm Technique: ultrasound Injectate: bupivacaine 0.5% with epi 5 mcg/ml (30cc- no epi) Observations: tolerated well Complications: none Procedure start time:: 1215 Procedure end time:: 121
--- NOTE | 2022-06-29 12:05 | WPDHPUPDATE1 ---
History and Physical Update Update Date/Time: 06/29/22 12:05 History and Physical has been reviewed, including an updated exam of the patient. There are NO changes in the patient's condition. Risks, benefits, and alternatives have been discussed and questions answered. Patient agrees to proceed with procedure.
[2022-06-29] MEDS: KETOROLAC 15 MG/ML VIAL (*BKC) IV PUSH (12:11)
[2022-06-29] MEDS: ceFAZolin 2 GM/D5W 50 ML 2 GM/50 ML BAG IVPB (12:21)
[2022-06-29] MEDS: BUPIVACAINE/EPINEPHRINE 0.25% 10 ML VIAL INFILTRATE (12:52)
--- NOTE | 2022-06-29 13:37 | P.OP_ITS ---
Procedure Note - Detailed Date of Procedure 06/29/22 Pre-op Diagnosis right shoulder AC joint arthritis, impingement Post-op Diagnosis Other (Right rotator cuff tear with AC joint arthritis) Procedure Performed Right shoulder acromioplasty, distal clavicle excision and repair of the rotator cuff. Surgeon Michael Barnett MD Form Carpenter Cata Kiran Anesthesia General and Regional Description of Procedure Patient was identified and proper site identified. In the preop holding area the anesthesia team performed a right upper extremity block. She was then taken to the operating room and transferred to the or table taking care to pad the torso and extremities. After general anesthetic induction and intubation, she was put in a semi beach chair position in the usual manner for a right shoulder procedure. Her head was secured taking care to neither rotate nor extend the head and neck. The right upper extremity was prepped and draped free in usual sterile fashion. The subcutaneous tissue in the area of the incision was injected with 10 cc of 0.25% Marcaine and epinephrine solution. An oblique anterior incision was made extending from the AC joint distally in line with the fibers of the deltoid. Subcutaneous tissue was sharply dissected down to the deltoid fascia. The deltoid was dissected off the anterior portion of the acromion in the distal end of the clavicle. A 2 cm split was made at the junction between the anterior and middle thirds of the deltoid. Using the microsagittal saw the last 8 mm of clavicle removed. The saw was also used to perform the acromioplasty and then the undersurface of the acromion was rasped smooth. There was some thickened bursa overlying the rotator cuff which was debrided allowing for complete expansion. There was an erosive type tear in the midsubstance of the supraspinatus tendon. The degenerative tendon was excised and then a nnyd-di-ccng repair was able to be carried out using interrupted #2 Ethibond sutures. The wound was irrigated with sterile NaCl solution. The deltoid was repaired back to the acromion with #2 Ethibond suture passed through bone and the remainder of the deltoid repair carried out with 2-0 Vicryl. Subcutaneous tissue was reapproximated with 2-0 Strata fix and then tissue adhesive used for the skin. Sterile dressing was applied. There were no known intraoperative complications, and perioperative antibiotics were administered. Estimated Blood Loss 20 Drains No Packing No Pathology None sent Complications No immediate complications Condition Stable Disposition PACU [facility] Billing Surgery - Charge Forward: Surgery Billing ([id number], [id number])
--- NOTE | 2022-06-29 13:53 | SUR.PHASEI ---
1352: Patient requested the simple mask be removed.
[2022-06-29] MEDS: ONDANSETRON INJ 4 MG/2 ML VIAL IV PUSH (13:58)
[2022-06-29] MEDS: diphenhydrAMINE HCl INJ 50 MG/ML VIAL 25 MG IV PUSH (14:49)
[2022-06-29] MEDS: SCOPOLAMINE 1.5 MG PATCH TRANSDERM (15:11)
== END 2022-06-29 16:15 | disposition home or self-care (01) ==
PROVIDERS: PCP Family Medicine; Visit Provider Orthopaedic Surgery
PROC: (CPT 23420; principal; 2022-06-29 11:00)
DX: M75.101 Unspecified rotator cuff tear or rupture of right shoulder, not specified as traumatic (principal); M19.011 Primary osteoarthritis, right shoulder; M75.41 Impingement syndrome of right shoulder; G89.18 Other acute postprocedural pain; E28.2 Polycystic ovarian syndrome; Z79.84 Long term (current) use of oral hypoglycemic drugs; E66.9 Obesity, unspecified; Z68.38 Body mass index [BMI] 38.0-38.9, adult
CPT/HCPCS: 64415; 23412; 23120; A4565; A9270; J0330; J0690; J1100; J1170; J1200; J1885; J2250; J2370; J2405; J2704; J2710; J3010; J7120

== ENCOUNTER 2022-08-14 22:28 | Emergency (ER) | payer OTHER, SELFPAY ==
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
[2022-08-14 23:35] VITALS: BP 140/86; PULSE 83; RESP 18; TEMP 36.8; O2SAT 99
[2022-08-15] VITALS (11 sets, daily range): BP systolic 118–134; BP diastolic 68–84; PULSE 76–88; RESP 14–16; O2SAT 98–100
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
[2022-08-15 03:53] LABS: Alanine Aminotransferase 28 U/L (6-35); Albumin Level 4.6 g/dL (3.5-5.1); Alkaline Phosphatase 54 U/L (38-126); Anion Gap 9 mmol/L (8-16); Aspartate Amino Transferase 27 U/L (14-36); Bilirubin,Total 0.5 mg/dL (0.2-1.3); Blood Urea Nitrogen 12 mg/dL (7-17); Calcium 9.4 mg/dL (8.4-10.2); Carbon Dioxide 27 mmol/L (22-30); Chloride 101 mmol/L (98-107); Estimated CRCL calculation 107 ml/min; Estimated Glomerular Filt Rate > 60; Glucose 104 mg/dL (65-110); Potassium 3.8 mmol/L (3.4-5.0); Sodium 137 mmol/L (137-145)
== END 2022-08-15 08:25 | disposition home or self-care (01) ==
PROVIDERS: Physician Assistant; Emergency Provider Emergency Medicine; PCP Family Medicine
DX: S46.911A Strain of unspecified muscle, fascia and tendon at shoulder and upper arm level, right arm, initial encounter (principal); S80.11XA Contusion of right lower leg, initial encounter; V40.5XXA Car driver injured in collision with pedestrian or animal in traffic accident, initial encounter
CPT/HCPCS: 36415; 70450; 73030; 73590; 74177; 80053; 96365; 99284; J0131; Q9967

== ENCOUNTER → 2022-08-21 09:00 | Outpatient (CLI) | payer OTHER, SELFPAY ==
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
== END ==
PROVIDERS: PCP Family Medicine; Visit Provider Family Medicine
DX: M79.604 Pain in right leg (principal)
CPT/HCPCS: 73590

== ENCOUNTER 2022-08-21 09:22 | Outpatient (CLI) | payer OTHER, SELFPAY ==
[2022-08-21 11:15] LABS: Kit Draw Collected
== END 2022-08-21 09:23 | disposition home or self-care (01) ==
LOC: ANHGOSHLAB 09:24
PROVIDERS: PCP Family Medicine; Visit Provider Family Medicine
DX: F32.9 Major depressive disorder, single episode, unspecified (principal); Z79.899 Other long term (current) drug therapy
CPT/HCPCS: 36415

== ENCOUNTER → 2022-12-04 08:52 | Outpatient (CLI) | payer OTHER, SELFPAY ==
--- NOTE | ~2022-12-04 | XR_ITS ---
EXAMINATION: XR shoulder RT min 2V DATE: 12/04/2022 09:04 INDICATION: Six-month follow-up post right shoulder surgery TECHNIQUE: AP internally and externally rotated, AP oblique externally rotated and transscapular Y vi ews of the right shoulder were obtained. COMPARISON: None FINDINGS: Normal alignment. No fracture. The distal right clavicle has been excised with secondary widening of the acromioclavicular joint. Right glenohumeral joint space is normal. Mild cervical and thoracic spo ndylosis. Visualized portions of the lungs are clear. Soft tissues are unremarkable. IMPRESSION: Status post distal right clavicle resection. Otherwise unremarkable right shoulder radiographs. Reviewed, dictated and finalized at location A. IMPRESSION: Status post distal right clavicle resection. Otherwise unremarkable right shoul jhonny radiographs.
== END ==
PROVIDERS: PCP Family Medicine; Visit Provider Orthopaedic Surgery
DX: M75.101 Unspecified rotator cuff tear or rupture of right shoulder, not specified as traumatic (principal)
CPT/HCPCS: 73030

== ENCOUNTER 2023-06-03 21:31 | Observation (INO) | payer OTHER, SELFPAY ==
[2023-06-03] VITALS (23 sets, daily range): BP systolic 114–139; BP diastolic 49–70; PULSE 98–120; TEMP 37.5; O2SAT 96–100; BMI 41.6
--- NOTE | 2023-06-03 21:51 | PC.NURSE ---
2130 Pt presents to L&D via EMS with complaints of SROM at 2029. pt is not a pt of here but states she is 22 4/7 with di-di twins. states is complicated with GDM and AMA. Pt denies any vaginal bleeding and states she is feeling cramping. 2138 Baby A FHT 180, Baby B FHT 160 2139 ROMplus obtained, positive result 2141 Dr. Blood notified of pt status, en route to hospital to transfer pt.
[2023-06-03] MEDS: LACTATED RINGERS 1,000 ML 75 ML IV CONT (22:20)
--- NOTE | 2023-06-03 22:20 | PM.IMHP ---
H&P: HPI History of Present Illness Date/Time: 06/03/23 22:20 Chief Complaint: Leaking Narrative: 42 y/o G1 at 22 weeks with di/di twin gestation presented with c/o leaking clear at 2029. Mild cramping since. She was confirmed ROM with ROM plus on L and D. Sterile spec exam did reveal obvious cervical dilation. Small amount of fluid in vagina. Ultrasound - br/transv- large amount of fluid noted in both sacs. She receives care with [facility]. Recently diagnosed with gestational diabetes. Denies fevers or chills. FORMERLY [facility], [facility] Past Medical History Medical History Acromioclavicular joint arthritis Distal clavicle excision with the rotator cuff repair June 29, 2022 Anxiety Depression GERD (gastroesophageal reflux disease) Obesity PCOS (polycystic ovarian syndrome) Post covid-19 condition, unspecified Surgical History Surgical History History of carpal tunnel release of both wrists 05/2018 and 08/2018 History of surgery on arm As a child Hx of cholecystectomy (~05/2019) Labral tear of right hip joint Underwent surgical repair in 05/2009 Right rotator cuff tear Right rotator cuff repair with acromioplasty and distal clavicle excision June 29, 2022 Family History Family History Father Diabetes mellitus Family history of hypercholesterolemia Hypertension Family history of cardiovascular disease Acute myocardial infarction Mother Hypertension Grandparent Acute myocardial infarction, Onset Age: 39 Cerebrovascular accident Carcinoma of colon Family history of malignant neoplasm of breast Social History Social History Smoking status: Never smoker Alcohol intake: current Alcohol use details: Drinks 1 bottle of wine over 1 to 2 week time Substance use: former Substance use type: marijuana Other substance usage details: RARE EDIBLE Last use: 01/2022 Lack of Transportation: No Lack of Food: Never True Current Housing: I Have Housing Concerned About Future Housing: No Difficulty Paying Gas/Electric Bills: No Difficulty Paying for Meds: No Currently Unemployed: No Education: Master's Degree or Higher Difficulty w/ Childcare or Family Care: No Living arrangements: with family Occupation/Education: occupation 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[employer]) Gender identity (if verbalized by the patient): Female Spiritual care concerns: No Meds Home Medications and Allergies Home Medications Medication Instructions Recorded Confirmed Type prenat.vits,chiara,[id number] 1 tablet PO 2XW 05/03/19 06/03/23 History epinephrine 0.3 mg/0.3 mL 0.3 mg (0.3 mL) IM ONCE #2 ea 08/07/22 06/03/23 Rx injection, auto-injector (EpiPen) Allergies Allergy/AdvReac Type Severity Reaction Status Date / Time morphine Allergy Mild Hives Verified 01/26/23 07:44 naproxen AdvReac Mild hallucinati Verified 01/26/23 07:44 ons COVID-19 vaccine, mRNA, AdvReac Anaphylaxis Verified 01/26/23 07:44 [id number], L Vital Signs Vital Signs - 24 hr 06/03/23 21:51 06/03/23 21:48 06/03/23 22:00 Pulse Rate 112 H 104 H Blood Pressure 139/60 114/51 L Oxygen Delivery Room Air 06/03/23 22:15 Pulse Rate 110 H Blood Pressure 130/70 Oxygen Delivery Exam Const: General: comfortable and no acute distress Eyes: General: appearance normal, both eyes and all related structures Resp: Effort & Inspection: normal respiratory effort GI: Other: gravid no fundal tenderness Neuro: General: oriented to person, oriented to place and oriented to time Extrem: General: normal to inspection and no calf tenderness Assessment and Plan Assessment and plan (1) premature rupture of membranes (PPROM) delivered, brett
[2023-06-03] MEDS: MAGNESIUM SULF 6 GM/WATER150ML 6 GM/150 ML BAG IVPB (22:21)
[2023-06-03] MEDS: AMPICILLIN 2 GM/NS 100 ML 2 GM/100 ML BAG IVPB (22:22)
[2023-06-03] MEDS: MAGNESIUM SULF 20GM/WATER500ML 500 ML 50 MG IV CONT (22:57)
[2023-06-03] MEDS: ERYTHROMYCIN LACTOBIONATE INJ 250 MG in SODIUM CHLORIDE 0.9% IV 100 ML 200 MG IVPB (23:07)
[2023-06-03] MEDS: TERBUTALINE SULFATE 1 MG/ML VIAL 0.25 MG SUB-Q (23:36)
[2023-06-04 00:04] VITALS: PULSE 117; O2SAT 100
[2023-06-04 00:09] VITALS: PULSE 112; O2SAT 100
[2023-06-04 00:14] VITALS: PULSE 115; O2SAT 100
[2023-06-04 00:15] VITALS: BP 129/52; PULSE 118
[2023-06-04 01:35] LABS: Glucose Point of Care 107 mg/dl (65-105)
--- NOTE | 2023-06-24 13:45 | PM.TDS ---
Transfer Discharge Sum: Prov Provider Date of admission: 06/03/23 21:31 Primary care physician: Alisa Hudson DO Admitting clinician: Yovani Blood MD Attending physician on discharge: Yovani Blood Discharging clinician: Yovani Blood Anticipated date of transfer: 06/03/23 Receiving physician/facility: [facility] DS: Admitting Diagnosis Discharge Date 06/04/23 Admitting Diagnosis premature rupture of membranes DS: Discharge Diagnosis Discharge Diagnosis (1) premature rupture of membranes: Code(s): O42.919 - premature rupture of membranes, unspecified as to length of time between rupture and onset of labor, unspecified trimester Status: Acute (2) Twin gestation in second trimester: Code(s): O30.002 - Twin , unspecified number of placenta and unspecified number of amniotic sacs, second trimester Status: Acute Transfer Discharge Sum: Med Medications Active and Home Medications: Home Medications prenat.vits,chiara,[id number] 1 tablet PO 2XW 05/03/19 [History Confirmed 06/03/23] epinephrine 0.3 mg/0.3 mL injection, auto-injector (EpiPen) 0.3 mg (0.3 mL) IM ONCE #2 ea 08/07/22 [Rx Confirmed 06/03/23] Transfer Discharge Sum: Hosp Hospital Course Hospital course: Diana Arroyo is a 42 year old female who presented to the hospital with complaints of leaking fluid at 8:30 p.m.. She had positive confirmation of rupture of membranes with positive ROM Plus. Bedside ultrasound showed twin gestation breech transverse. She received her care at [facility]. She was recommended for transfer due to risk of delivery of severely infants. Discussed her care with maternal medicine specialist Dr. Ying Archibald who agreed with transfer to [facility]. Time Spent with Patient Time attestation: Total time spent providing and/or coordinating transfer services: Exam Const: General: no acute distress Eyes: General: appearance normal, both eyes and all related structures Resp: Effort & Inspection: normal respiratory effort Cardio: Rate: regular rate GI: Other: Gravid no fundal tenderness no right upper quadrant pain Skin: General skin exam: no rashes or lesions noted Neuro: Cognition (Neuro): normal cognition Extrem: General: normal to inspection Psych: Mental Status: mental status grossly normal
== END 2023-06-04 00:25 | disposition short-term general hospital (02) ==
LOC: ANHOBPP 21:37
PROVIDERS: Admitting Provider Obstetrics & Gynecology; PCP Family Medicine; Visit Provider Obstetrics & Gynecology
DX: O30.042 Twin pregnancy, dichorionic/diamniotic, second trimester (principal); O42.912 Preterm premature rupture of membranes, unspecified as to length of time between rupture and onset of labor, second trimester; Z3A.22 22 weeks gestation of pregnancy; Z79.899 Other long term (current) drug therapy
CPT/HCPCS: 82948; 96372; 96374; 96375; 96376; G0378; G0379; J0290; J1364; J3105; J3475; J7120

== ENCOUNTER 2024-09-23 10:52 | Emergency (ER) | payer BC, SELFPAY ==
--- NOTE | ~2024-09-23 | CT_ITS ---
EXAMINATION: CT abdomen pelvis w con DATE: 09/23/2024 13:45 INDICATION: Diarrhea. Diffuse abdominal pain. TECHNIQUE: Computed tomography (CT) of the abdomen and pelvis was performed 100 cc Omnipaque 350 intr avenous contrast. The dose-length product was 1202.61 mGy-cm. Automated exposure control and iterativ e reconstruction technique were employed. COMPARISON: CT dated 08/15/2022. FINDINGS: Lung bases unremarkable. Heart size normal. No significant pleural or pericardial effusion. There are cholecystectomy clips. Fatty infiltration of the liver. The spleen, pancreas, adrenal glan ds and kidneys are unremarkable. There are cholecystectomy clips. Nonobstructive bowel gas pattern. T here is an involuting corpus luteal cyst of the right ovary measuring 1.8 cm. No free fluid. No free air. No significant vascular abnormality. No lymphadenopathy. Normal appendix. IMPRESSION: 1. No acute abdominal abnormality. Reviewed, dictated and finalized at location A.
--- OUTSIDE RECORDS SUMMARY | 2024-09-23 10:54 | XMS_ITS | Encounter Summary ---
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 Setup Operator Name Role Phone Unavailable Primary Care Provider Unavailabl e Encounter Details Date Type Department Care Team (Late st Contact Info) Description 01/29/2021 Lab Requisition [facility] [address] [place] [address] Aletha Granger MD Social History Tobacco Use Types Packs/Day Years Used Date Smoking Tobacco: Never Assessed Comments Unknown Sex and Gender Information Value Date Recorded Sex Assigned at Not on file Legal Sex Female 9:25 AM INBOUND CALL CENTER AGENT Gender Identity Not on file Sexual Orientation Not on file documented as of this encounter Plan of Treatment Not on file documented as of this encounter Procedures Procedure Name Priority Date/Time Associated Diagnosis Comments HCG BETA BLOOD QUANTITATIVE STAT 01/29/2021 7:11 AM INBOUND CALL CENTER AGENT documented in this encounter Results * HCG BETA BLOOD QUANTITATIVE (01/29/2021 7:11 AM INBOUND CALL CENTER AGENT) hCG Quantitative <1.20 mIU/mL 01/30/20 2:40 PM INBOUND CALL CENTER AGENT [facility] Blood BLOOD SPECIMEN / Unknown Venipuncture / Unknown 01/29/2021 7:11 AM INBOUND CALL CENTER AGENT 01/29/2021 1:52 PM INBOUND CALL CENTER AGENT Narrative [facility] - 01/29/2021 2:40 PM INBOUND CALL CENTER AGENT hCG Reference Range, mIU/mL: Males 0-2.0 Non Females 0-6.0 Perimenopausal Females ages 41-55* 0-7.7 Postmenopausal Females age >55* 0-14 Females, Weeks after Last Menstrual Period 0.2-1 week 5-50 1 - 2 weeks 50-500 2 - 3 weeks 100-5000 3 - 4 weeks 500-10,000 4 - 5 weeks 1000-50,000 5 - 6 weeks 10,000-100,000 6 - 8 weeks 15,000-200,000 2 - 3 months 10,000-100,000 Trophoblastic Disease >100,000 *In higher than expected hCG in females > age 40, a serum FSH >20 IU/L makes unlikely. Aletha Granger MD LAB - CHEMISTRY ORDERABLES Final Result [facility] [address] [place] [address] documented in this encounter Visit Diagnoses Not on filedocumented in this encounter
--- OUTSIDE RECORDS SUMMARY | 2024-09-23 10:54 | XMS_ITS | Patient Health Record ---
Author Organization [facility] Address [address] [place] [address] Care Team Providers Care Regulatory Administrator Name Role Phone Deshawn Hewitt Primary Care Provider Reason For Referral No Information Immunizations Vaccine Route Administration Date Status Comme nts COVID-19 Moderna 1ST IM Intramuscular 03/06/2020 Administered EUA date 0. Screening reviewed and consent signed. Pt tolerated well. COVID-19 Moderna 1ST IM Intramuscular 04/04/2020 Administered EUA date 0/. Screening reviewed and consent signed. Patient tolerated well. COVID-19 Moderna Booster IM Intramuscular 04/03/2021 Administered Plan Of Treatment No Information
--- OUTSIDE RECORDS SUMMARY | 2024-09-23 10:54 | XMS_ITS | Clinical Summary ---
Author Organization [facility] Address [address] [place] [address] Care Team Providers Care Cargoman Name Role Phone Alisa Hudson Primary Care Provider [phone] Lexy Sargent MD Unavailable [phone] Allergies Active Allergy Reactions Criticality Noted Date Comments Covid Vaccine [id number] (Xbb .1.5) Recombinant Anaphylaxis High 03/26/2023 Covid-19 (Sars-Cov-2) Vaccine, Ad26 Anaphylaxis High 08/14/2022 Morphine Hives Medium 03/16/2022 Naproxen Hallucinations Medium 05/19/2022 Medications EPINEPHrine 0.3 mg/0.3 mL auto-injection syringe 3 Active estradioL (Estrace) 2 mg tablet Take 1 tablet (2 mg total) by mouth 3 (three) times a day 90 tablet 4 3 Active Additional Information Patient not taking.Reported on 09/23/2024 progesterone 50 mg/mL injection Inject 25mg to 100mg IM daily as directed by 20 mL 4 3 Active Additional Information Patient not taking.Reported on 09/23/2024 vitamin ferrous fumarate-folic () 28 mg iron- 800 mcg tablet Take 1 tablet by mouth daily 30 tablet 11 3 Active Additional Information Patient not taking.Reported on 09/23/2024 methylPREDNISol one (MEDROL) 8 mg tablet Take 1 tablet (8 mg total) by mouth 2 (two) times a day Active senna-docusate (PERICOLACE) 8.6-50 mg Take 1 tablet by mouth daily 4 Active Active Problems Problem Noted Date Diagnosed Date Delivery by classical section Gestational hypertension, second trimester 06/10 resulting from in-vitro fertilization 06/11/2023 Premature rupture of membranes in second trimest er 06/04/2023 Twin gestation in second trimester 04/18/2023 Nasal congestion related to 04/18/2023 Dichorionic diamniotic twin 03/26/2023 Obesity in , antepartum 03/26/2023 resulting from in vitro fertilization in first trimester 03/26/2023 Primigravida of advanced maternal age in first t rimester 03/26/2023 Supervision of high risk in first trim roseanne 03/26/2023 Encounter for assisted repro ductive fertility procedure cycle 10/12/2022 Polycystic ovarian disease 10/12/2022 PCOS (polycystic ovarian syndrome) 07/03/2022 Polycystic ovary syndrome 07/03/2022 Abnormal mammogram 05/19/2022 Encounters Date Type Department Care Team Description 09/23/2024 11:00 AM CDT Office Visit [facility] at [address] [address] Howard Maciel, PAMELA Abdominal pain (Primary Dx); Generalized abdominal tenderness, rebound tenderness presence not specified; Diarrhea, unspecified type from Last 3 Months Immunizations Immunization Administration Dates Next Due DTaP 10/01/1986, 4,06/06/1982,04/04,01/28/1982 HPV, Quadrivalent 05/11/2007,10/15/2006,09/17/19 07 Hep A, Adult 05/11/2007,09/16/2006 Hep B, Unspecified 03/06/1998,09/25/1997, 998 Hib (PRP-OMP) 02/03/1985 Influenza, Quadrivalent, Spl it, Intramuscular 12/05/2019 Influenza, Trivalent, Preser vative Free, Intramuscular 11/30/2018 Influenza, Unspecified 03/02/2013,03/05/2012 MMR 08/14/1991,03/12/1983 OPV 10/01/1986, 4,06/06/1982,04/04,01/28/1982 Pneumococcal Polysaccharide PPV23 03/05/2012 Td, Unspecified 08/25/1995 Tdap 06/20/2023,12/05/2020,07/15/2006 Surgical History Surgery Date Site/Laterality Comments CHOLECYSTECTOMY 03/08/2019 - 03/07/2020 CARPAL TUNNEL RELEASE 03/08/2017 - 03/07/2018 SHOULDER SURGERY 06/30/2022 Right OVUM / OOCYTE RETRIEVAL 10/16/2022 EGG RETRIEVAL TRANSFER EMBRYO INTRAUTERINE 01/15/2023 FROZEN EMBRYO TRANSFER 1 DAY 5 Medical History Medical History Date Comments Herpes Arthritis Ovarian cyst Anxiety Depression Delayed emergence from general anesthesia kept in PACU longer after shoulder surgery but no ICU admission PONV (postoperative nausea and vomiting) once - nausea without vomiting GERD (gastroesophageal reflu x disease) 20 years ago Brain concussion 2 concussions over t he last 3 yrs Family History Medical History Relation Name Comments Diabetes Father Josué Rubyett Early Father Josué Arroyo Heart attack Father Josué Arroyo Heart disease Father Josué Arroyo Hyperlipidemia Father Josué Arroyo Hypertension Father Josué Arroyo Chronic bronchitis Father's Brother Diabetes Father's Brother Alcohol abuse Father's Sister Diabetes Father's Sister Cancer Maternal Grandfather Prostate Cancer Prostate cancer Maternal Grandfather Prostate Cancer Seizures Maternal Grandfather Prostate Cancer Adul t-onset Brain cancer Maternal Grandmother Irena Cruz Stroke Maternal Grandmother Irena Cruz Hypertension Mother Analia Dina Diverticulitis Mother's Brother Solid Tumor Mother's Sister Abdominal tu mor NOS Stroke Mother's Sister Asthma Nephew Eczema Nephew Congenital heart disease Niece 1 No Known Problems Niece 2 Heart attack Paternal Grandfather Breast cancer Paternal Grandmother Ida Tunge t - Breast Cancer Cancer Paternal Grandmother Ida Basse t - Breast Cancer Heart attack Paternal Grandmother Ida Basse t - Breast Cancer Thyroid disease Paternal Grandmother Iad Basse t - Breast Cancer Miscarriages / Stillbirths Sister 1 1 or 2 SAB Miscarriages / Stillbirths Sister 2 Mariela Arroyo Anesthesia problems Neg Hx Relation Name Status Comments Father Josué Dina Alive Father's Brother Alive Father's Sister Alive Maternal Grandfather Prostate Cancer Maternal Grandmother Irena Cruz Alive Mother Analia Arroyo Alive Mother's Brother Alive Mother's Sister Alive Nephew Alive Niece 1 Niece 2 Alive Paternal Grandfather Paternal Grandmother Ida Rubyet - Breast Cancer Aliv e Sister 1 Alive Sister 2 Mariela Arroyo Alive Social History Tobacco Use Types Packs/Day Years Used Date Smoking Tobacco: Never Smokeless Tobacco: Never AUDIT-C Answer Date Recorded Q1: How often do you have a drink containing alc ohol? 2-4 times a month 08/14/2022 Q2: How many drinks containi ng alcohol do you have on a typical day when you are drinking? 1 or 2 08/14/2022 Frequency of Binge Drinking Not on file 11/2022 Personal Safety Answer Date Recorded Have you ever been in or are you currently in a harmful physical or emotional relationship or is someone making you feel afraid or unsafe? Denies 10/16/2022 Comments No Sex and Gender Information Value Date Recorded Sex Assigned at Not on file Legal Sex Female 3:03 PM SPRING COILER Gender Identity Female 03/20/2022 8:42 AM SPRING COILER Sexual Orientation Straight 03/20/2022 8: 42 AM SPRING COILER Obstetrics History Para Term AB IAB SAB Ectopic Multiple Livin g Live Births 1 0 0 0 1 0 1 0 0 0 0 Date Outcome GA Total Labor Labor/2nd/3rd Weight Sex Type Anes PTL Shanon A1 A5 Name Clin 03/27 17 SAB Biochemic al Last Filed Vital Signs Vital Sign Reading Time Taken Comments Blood Pressure 125/81 09/23/2024 10:14 AM CDT Pulse 89 09/23/2024 10:14 AM CDT Temperature 36.7 C (98.1 F) 09/23/2024 10:14 AM CDT Respiratory Rate 18 09/23/2024 10:14 AM CDT Oxygen Saturation 99% 09/23/2024 10:14 AM CDT Inhaled Oxygen Concentration - - Weight 106.6 kg (235 lb) 09/23/2024 10:14 AM CDT Height 162.6 cm (5' 4) 03/04/2023 2:12 PM SPRING COILER Body Mass Index 40.34 03/04/2023 2:12 PM SPRING COILER Plan of Treatment Upcoming Encounters Date Type Department Care Team (Late st Contact Info) Description 09/23/2024 11:00 AM CDT Office Visit [facility] at [address] [address] Howard Maciel NP 2 [facility] [address] [place] [address] Abdominal pain (Primary Dx); Generalized abdominal tenderness, rebound tenderness presence not specified; Diarrhea, unspecified type Health Maintenance Due Date Last Done Comments Cervical Cancer Screening 1981 Depression Screening 1981 Varicella Vaccines (1 of 2 - 13+ 2-dose series) 1994 Regular Well Visit/Exam 18-64 12/04/1999 Covid-19 Vaccine ( - 2023- season) 2023 04/03/2021, 04/04/2020, 03/06/2020 Influenza Vaccine (#1) 2024 , 11/30/2018, 03/02/2013, Additional history exists Breast Cancer Screening-Mammogram 05/01/2025 05/01/2024, 11/30/2022 DTaP/Tdap/Td Vaccine (9 - Td or Tdap) 06/19/2033 06/20/2023, 12/05/2020, 07/15/2006, Additional history exists Hepatitis B Screening Completed 03/06/1998 , 09/25/1997, 08/21/1997 HPV Vaccines Completed 05/11/2007, 10/06, 09/16/2006 Pneumococcal vaccine <65 Aged Out 03/05/2012 No longer eligible based on patient's age to complete this topic Hepatitis C Screening Completed 05/01/2022 Procedures Procedure Name Priority Date/Time Associated Diagnosis Comments SCREENING MAMMOGRAM BILATERAL W YAIR Schedule Routine, Read Routine (OP Routine) 05/01/2024 8:32 AM SPRING COILER Screening mammogram, encounter for HEPATITIS C ANTIBODY Routine 05/01/2022 12:10 PM SPRING COILER Screening for STDs (sexually transmitted diseases) from Last 3 Months or Most Recently Relevant to Health Maintenance Results * Screening Mammogram Bilateral W Yair (05/01/2024 8:32 AM SPRING COILER) Anatomical Region Laterality Modality Breast Bilateral Mammography Narrative 05/01/2024 1:23 PM SPRING COILER Mammogram Technique: Bilateral Digital Breast Tomosynthesis, Bilateral C-view 2D Screening mammogram. Views obtained: bilateral craniocaudal and bilateral mediolateral oblique. Computer Aided Detection was performed. Mammogram Findings: The present examination has been compared to a prior imaging study performed at [facility] on 11/30/2022. There are scattered areas of fibroglandular density. There is no suspicious abnormality in either breast. Impression: There is no mammographic evidence of malignancy. Annual screening mammography is recommended. OVERALL FINAL ASSESSMENT: BI-RADS CATEGORY 1: Negative. Procedure Note Maddy Mccabe MD - 05/01/2024 Mammogram Technique: Bilateral Digital Breast Tomosynthesis, Bilateral C-view 2D Screening mammogram. Views obtained: bilateral craniocaudal and bilateral mediolateral oblique. Computer Aided Detection was performed. Mammogram Findings: The present examination has been compared to a prior imaging study performed at [facility] on 11/30/2022. There are scattered areas of fibroglandular density. There is no suspicious abnormality in either breast. Impression: There is no mammographic evidence of malignancy. Annual screening mammography is recommended. OVERALL FINAL ASSESSMENT: BI-RADS CATEGORY 1: Negative. Self Screening Mammogram IMG MAMMO PROCEDURES Fi nal Result * Hepatitis C antibody (05/01/2022 12:10 PM SPRING COILER) Hep C Ab Non Reactive Non Reactive [facility] - 01 Comment: HCV antibody alone does not differentiate between previously resolved infection and active infection. Equivocal and Reactive HCV antibody results should be followed up with an HCV RNA test to support the diagnosis of active HCV infection. Blood 05/01/2022 12:1 0 PM SPRING COILER 05/01/2022 Narrative [facility] - 05/02/2022 7:10 AM SPRING COILER Performed at: [facility] [id number] Administrator Social Welfare: German Watts PhD, Phone: [phone] Shahla Maciel MD LAB MICROBIOLOGY - GENERAL OR DERABLES Final Result [facility] - 01 from Last 3 Months or Most Recently Relevant to Health Maintenance [place] Advance Directives For more information, please contact: [phone] * Full Code (Latest Code Status on File) Date Activated Date Inactivated Comments 10/16/2022 8:18 AM 10/16/2022 1:50 PM Care Teams Cargoman Relationship Specialty Start Date End Date Alisa Hudson DO PCP - General Family Medicine 02/02/22 Lexy Sargent MD 2022 [address]ER [address] [address] Referring Physician Gynecology 02/02/22
--- OUTSIDE RECORDS SUMMARY | 2024-09-23 10:54 | XMS_ITS | Clinical Summary ---
Author Organization [facility] Address [address] [place] [address] Care Team Providers Care Sand Mill Operator Name Role Phone Unavailable Primary Care Provider Unavailabl e Social History Tobacco Use Types Packs/Day Years Used Date Smoking Tobacco: Never Assessed Comments Unknown Sex and Gender Information Value Date Recorded Sex Assigned at Not on file Legal Sex Female 12:13 PM SUPERINTENDENT SERVICE Gender Identity Not on file Sexual Orientation Not on file Plan of Treatment Health Maintenance Due Date Last Done Comments Hepatitis C Virus (HCV) Screening 1981 Pap Smear 2002 Cervical Cancer Screening (CCS) 12/04/2011 HPV/Cotest 12/04/2011 Discussion re Starting/Frequency of Mammograms 2021 Influenza Immunization (#1) 11/07/202311/07, 11/30/2018, 03/02/2013, Additional history exists SARS-COV-2 Immunization ( season) 2023 04/04/2020, 03/06/2020 Respiratory Syncytial Virus (RSV) Immunization (Adult) (1 - 1-dose 75+ series) 2056 Hepatitis B Immunization Completed 998, 09/25/1997, 08/21/1997 Pneumococcal Immunization Combined Aged Out 03/05/2012 No longer eligible based on patient's age to complete this topic DTaP/Tdap/Td Immunization Discontinued 2020, 07/15/2006, 08/25/1995, Additional history exists TdaP Immunization Completed 12/05/2020, 07/15/2006 Meningococcal Immunization (ACWY) Aged Out No longer eligible based on patient's age to complete this topic Rotavirus Immunization Aged Out No lo nger eligible based on patient's age to complete this topic
--- OUTSIDE RECORDS SUMMARY | 2024-09-23 10:54 | XMS_ITS | Continuity of Care Document ---
Author Organization [facility] Address [address] [place] [address] Phone Care Team Providers Care Feeder Worker Power Unit Operator Name Role Phone Annette Reagan DO Unavailable Unavailable Procedures Procedure Date [facility] Screen Collection, 6 Medical Review Officer Office/outpatient visit,est, mod 2010 X-ray exam of hip, 1 view X-ray exam of pelvis, 1-2 views 011 Medical Record Copy Medical Record Copy Per Page Affidavit Office/outpatient visit,est, mod 2009 Office/outpatient visit,est, mod 2009 Medical Record Copy Medical Record Copy Per Page Postop followup visit Special Narrative Report Postop followup visit X-ray exam of hip, 1 view X-ray exam of pelvis, 1-2 views 010 Medical Record Copy Medical Record Copy Per Page Postop followup visit Postop followup visit Hip arthroscopy, surg debrid/shave Hip arthroscopy, surg w/synovectomy Arthroscopy, unlisted procedure 010 Hip arthroscopy, surg debrid/shave Hip arthroscopy, surg debrid/shave Disability Form MRI lwr extrm joint, w/o contrast Office/outpatient visit,est, mod 2009 X-ray exam of knee, 3 views X-ray exam of both knees, standing Office/outpatient visit,est, mod 2009 Disability Form Office/outpatient visit,est, mod 2009 Drain/inject major jointor bursa 2009 Kenalog Triamcinolone acetonide inj Office/outpatient visit,[facility] [place] X-ray exam lower spine 2-3 views 2009 X-ray exam of hip, complete X-ray exam of pelvis, 1-2 views 010 Advance Directives Directive Yes / No Effective Date File Name No Information Encounters Encounter Description Practice Location Reason(s) For Visit Diagnoses Date Provider Providers Copied on Encounter [facility], [address], [id number], [place] tel:[phone] [facility] No Information 6 Tez Bryant. [address], [id number], [place]. tel:[phone] [facility], [address], [id number], [place] tel:[phone] [facility] Encounter for pre-employme nt examination 6 Tez Bryant. [address] [facility] [place] [address], [place], [place], [id number], [place]. tel:[phone] Office/outpa [place]ient visit,est, [facility], [address], [id number], [place] tel:[phone] [facility] JOINT PAIN-PELVIS [address] No [address] [facility], [address] [facility] [address], [place], [place], [id number], [place] tel:[phone] [facility] No Information 8 0 Administrative Provider. [address] [facility], [facility] [address], [place], [place], [id number], [place]. tel:[phone] Office/outpa tient visit,est, mod [facility], [address] [address], [place], [place], [id number], [place] tel:[phone] [facility] No Information 0-201 0 No Information Office/outpa tient visit,est, mod [facility], [address] [address], [place], [place], [id number], [place] tel:[phone] [facility] No Information 9 [address] No [address] [facility], [address] [place] [address], [place], [place], [id number], [place] tel:[phone] [facility] No Information 0 Administrative Provider. [address] [facility], [facility] [address], [place], [place], [id number], [place]. tel:[phone] [facility], [address] [place] [address], [place], [place], [id number], [place] tel:[phone] [facility] No Information 0 [address] [facility], [address] [place] [address], [place], [place], [id number], [place] tel:[phone] [facility] No Information 0 No [address] [facility], [address] [place] [address], [place], [place], [id number], [place] tel:[phone] [facility] No Information 0 No [address] [facility], [address], [id number], [place] tel:[phone] [facility] No Information 0 Administrative Provider. [address] [facility], [address], [place], [place], [id number], [place]. tel:[phone] [facility], [address] [facility] [address], [place], [place], [id number], [place] tel:[phone] [facility] No Information May-0 7-201 0 No Information [facility], [address] [facility] [address], [place], [place], [id number], [place] tel:[phone] [facility] No Information Apr-0 9-201 [address] [facility], [address] [facility] [address], [place], [place], [id number], [place] tel:[phone] [facility] [place] No Information Mar-3 0-201 [address] [facility], [address] [facility] [address], [place], [place], [id number], [place] tel:[phone] [facility] [place] No Information Mar-3 0-201 [address] [facility], [address] [facility] [address], [place], [place], [id number], [place] tel:[phone] [facility] No Information Mar-3 0-201 0 No Information [facility], [address] [facility] [address], [place], [place], [id number], [place] tel:[phone] [facility] No Information Mar-2 6-201 0 [facility]. [address] [facility], [address], [place], [place], [id number], [place]. tel:[phone] Office/outpa tient visit,est, mod [facility], [address] [facility] [address], [place], [place], [id number], [place] tel:[phone] [facility] No Information Mar-2 6-201 0 No Information Office/outpa tient visit,est, mod [facility], [address] [facility] [address], [place], [place], [id number], [place] tel:[phone] [facility] No Information Mar-1 5-201 0 No Information [facility], [address] [facility] [address], [place], [place], [id number], [place] tel:[phone] [facility] No Information 0 No Information Office/outpa [facility]ient visit,[facility], [facility], [address] [facility] [address], [place], [place], [id number], [place] tel:[phone] [facility] No Information 0 No Information Office/outpa tient visit,[place], [facility], [address] [facility] [address], [place], [place], [id number], [place] tel:[phone] [facility] No Information 0 No Information Family History Family Member Type Diagnosis Age At Onset No Information Payers Payer name Insurance type Covered constitution party ID Authorcasa kristoferviv(s) [facility] [id number] Social History Type Description Quantity Date Captured Comments Sex Female Smoking Status No Information Chief Complaint And Reason For Visit No Information Reason For Referral Reason For Referral No Information History Of Present Illness Encounter Date Complaint History Of Prese nt Illness No Information Functional Status Date Functional Assessmen t No Information Instructions Date Instruction Additional Infor mation No Information Assessments Type Assessment Date No Information Patient Care Teams Name Effective Dates (start - stop) Status Members No Information
--- OUTSIDE RECORDS SUMMARY | 2024-09-23 10:54 | XMS_ITS | Encounter Summary ---
Author Organization [facility] Address [address] [place] [address] Care Team Providers Care Poker Machine Attendant Name Role Phone Alisa Hudson Primary Care Provider [phone] Lexy Sargent MD Unavailable [phone] Reason for Visit * Reason Comments Abdominal Pain Diarrhea x 4 days 5 times since 5 am today Encounter Details Date Type Department Care Team (Late st Contact Info) Description 09/23/2024 11:00 AM CDT Office Visit [facility] at [address] [address] Howard Maciel NP [address] [place] [address] [address] [place] [address] Abdominal pain (Primary Dx); Generalized abdominal tenderness, rebound tenderness presence not specified; Diarrhea, unspecified type Social History Tobacco Use Types Packs/Day Years [...] on file Legal Sex Female 3:03 PM SERVICE EMPLOYEE Gender Identity Female 03/20/2022 8:42 AM SERVICE EMPLOYEE Sexual Orientation Straight 03/20/2022 8: 42 AM SERVICE EMPLOYEE documented as of this encounter Last Filed Vital Signs Vital Sign Reading Time Taken Comments Blood Pressure 125/81 09/23/2024 10:14 AM CDT Pulse 89 09/23/2024 10:14 AM CDT Temperature 36.7 C (98.1 F) 09/23/2024 10:14 AM CDT Respiratory Rate 18 09/23/2024 10:14 AM CDT Oxygen Saturation 99% 09/23/2024 10:14 AM CDT Inhaled Oxygen Concentration - - Weight 106.6 kg (235 lb) 09/23/2024 10:14 AM CDT Height - - Body Mass Index 40.34 03/04/2023 2:12 PM SERVICE EMPLOYEE documented in this encounter Plan of Treatment Not on file documented as of this encounter Visit Diagnoses Diagnosis Abdominal pain- Primary Abdominal pain, unspecified site Generalized abdominal tenderness, rebound tenderness presence not specified Diarrhea, unspecified type documented in this encounter Historical Medications * This list may reflect changes made after this encounter. senna-docusate (PERICOLACE) 8.6-50 mg Take 1 tablet by mouth daily 06/19/2023 added in this encounter Care Teams Poker Machine Attendant Relationship Specialty Start Date End Date Alisa Hudson DO PCP - General Family Medicine 02/02/22 Lexy Sargent MD [address] [address] Referring Physician Gynecology 02/02/22 documented as of this encounter
--- OUTSIDE RECORDS SUMMARY | 2024-09-23 10:54 | XMS_ITS | Referral Summary ---
Author Organization [facility] Address [address] [place] [address] Care Team Providers Care Yard Spotter Name Role Phone Alisa Hudson Primary Care Provider [phone]- [phone] Lexy Sargent MD Unavailable Encounters Date Type Department Care Team Description 09/23/2024 11:00 AM CDT Office Visit [facility] at [address] [phone] Howard Maciel NP Abdominal pain (Primary Dx); Generalized abdominal tenderness, rebound tenderness presence not specified; Diarrhea, unspecified type from Last 3 Months Allergies Active Allergy Reactions Criticality Noted Date Comments Covid Vaccine [id number] (Xbb .1.5) Recombinant Anaphylaxis High 03/26/2023 Covid-19 [...] Polycystic ovary syndrome 07/03/2022 Abnormal mammogram 05/19/2022 Immunizations Immunization Administration Dates Next Due DTaP 10/01/1986, 4,06/06/1982,04/04,01/28/1982 HPV, Quadrivalent 05/11/2007,10/15/2006,09/17/19 07 Hep A, Adult 05/11/2007,09/16/2006 Hep B, Unspecified 03/06/1998,09/25/1997, 998 Hib (PRP-OMP) 02/03/1985 Influenza, Quadrivalent, Spl it, Intramuscular 12/05/2019 Influenza, Trivalent, Preser vative Free, Intramuscular 11/30/2018 Influenza, Unspecified 03/02/2013,03/05/2012 MMR 08/14/1991,03/12/1983 OPV 10/01/1986, 4,06/06/1982,04/04,01/28/1982 Pneumococcal Polysaccharide PPV23 03/05/2012 Td, Unspecified 08/25/1995 Tdap 06/20/2023,12/05/2020,07/15/2006 Social History Tobacco Use Types Packs/Day Years [...] on file Legal Sex Female 3:03 PM CLAY HOISTER Gender Identity Female 03/20/2022 8:42 AM CLAY HOISTER Sexual Orientation Straight 03/20/2022 8: 42 AM CLAY HOISTER Last Filed Vital Signs Vital Sign Reading [...] 162.6 cm (5' 4) 03/04/2023 2:12 PM CLAY HOISTER Body Mass Index 40.34 03/04/2023 2:12 PM CLAY HOISTER Plan of Treatment Upcoming Encounters Date Type Department Care Team (Late st Contact Info) Description 09/23/2024 11:00 AM CDT Office Visit [facility] at [address] [phone] Howard Maciel, PAMELA [address] [place] [address] [address] [place] [address] Abdominal pain (Primary Dx); Generalized abdominal tenderness, rebound tenderness presence not specified; Diarrhea, unspecified type Procedures Procedure Name Priority Date/Time Associated Diagnosis Comments SCREENING MAMMOGRAM BILATERAL W CATHY Schedule Routine, Read Routine (OP Routine) 05/01/2024 8:32 AM CLAY HOISTER Screening mammogram, encounter for HEPATITIS C ANTIBODY Routine 05/01/2022 12:10 PM CLAY HOISTER Screening for STDs (sexually transmitted diseases) from Last 3 Months or Most Recently Relevant to Health Maintenance Results * Screening Mammogram Bilateral W Cathy (05/01/2024 8:32 AM CLAY HOISTER) Anatomical Region Laterality Modality Breast Bilateral Mammography Narrative 05/01/2024 1:23 PM CLAY HOISTER Mammogram Technique: Bilateral Digital Breast Tomosynthesis, Bilateral C-view 2D Screening mammogram. Views obtained: bilateral craniocaudal and bilateral mediolateral oblique. Computer Aided Detection was performed. Mammogram Findings: The present examination has been compared to a prior imaging study performed at [facility] on 11/30/2022. There are scattered areas [...] to a prior imaging study performed at [facility] on 11/30/2022. There are scattered areas of fibroglandular density. There is no suspicious abnormality in either breast. Impression: There is no mammographic evidence of malignancy. Annual screening mammography is recommended. OVERALL FINAL ASSESSMENT: BI-RADS CATEGORY 1: Negative. us Self Screening Mammogram IMG MAMMO PROCEDURES Fi nal Result * Hepatitis C antibody (05/01/2022 12:10 PM CLAY HOISTER) Hep C Ab Non Reactive Non Reactive [facility] - 01 Comment: HCV antibody alone does not differentiate between previously resolved infection and active infection. Equivocal and Reactive HCV antibody results should be followed up with an HCV RNA test to support the diagnosis of active HCV infection. Blood 05/01/2022 12:1 0 PM CLAY HOISTER 05/01/2022 Narrative [facility] - 05/02/2022 7:10 AM CLAY HOISTER Performed at: - [facility] [id number] Tire Layer: German Watts PhD, Phone: [phone] us Shahla Maciel MD LAB MICROBIOLOGY - GENERAL OR DERABLES Final Result [facility] - 01 from Last 3 Months or Most Recently Relevant to Health Maintenance [place] Advance Directives For more information, please contact: [phone] * Full Code (Latest Code Status on File) Date Activated Date Inactivated Comments 10/16/2022 8:18 AM 10/16/2022 1:50 PM Care Teams Yard Spotter Relationship Specialty Start Date End Date Alisa Hudson DO PCP - General Family Medicine 02/02/22 Lexy Sargent MD [address] [address] Referring Physician Gynecology 02/02/22
--- OUTSIDE RECORDS SUMMARY | 2024-09-23 10:54 | XMS_ITS | Clinical Summary ---
Author Organization [facility] Address [address] [place] [address] Care Team Providers Care Collections Manager Name Role Phone Unavailable Primary Care Provider Unavailabl e Source Comments [facility],non-owned Affiliates and Associated Physician Practices is amultiple site organization consisting of ambulatory clinics and hospital sitesin [place], [place], [place] and [place]. This disclosure is being madepursuant to the Care Everywhere program and may not contain all information available regarding this patient. 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 Gender Identity Not on file Sexual Orientation Not on file Plan of Treatment Health Maintenance Due Date Last Done Comments LIPID TESTING 1981 MAMMOGRAM 1981 HIV SCREENING 1996 HEPATITIS C SCREENING 11/29/1999 DTAP/TDAP/TD VACCINES (1 - Tdap) 2000 HEPATITIS B VACCINE (1 of 3 - 19+ 3-dose series) 2000 HPV VACCINE (1 - 3-dose SCDM series) 2008 COVID-19 VACCINE (1 - 2023-2 5 season) 2023 DEPRESSION SCREENING 03/08/2024 INFLUENZA VACCINE (#1) 2024 ZOSTER VACCINE (1 of 2) 12/04/2031 HIB VACCINE Aged Out No longer eligi ble based on patient's age to complete this topic MENINGOCOCCAL (Group B) VACC INE SHARED DECISION-MAKING Aged Out No longer eligibl e based on patient's age to complete this topic MENINGOCOCCAL GROUPS A/C/Y/W VACCINE Aged Out No longer eligible b ased on patient's age to complete this topic PNEUMOCOCCAL VACCINE Aged Out No long er eligible based on patient's age to complete this topic
--- OUTSIDE RECORDS SUMMARY | 2024-09-23 10:54 | XMS_ITS | Clinical Summary ---
Author Organization [facility] Address [address] [place] [address] Care Team Providers Care Physician Industrial Name Role Phone Unavailable Primary Care Provider Unavailabl e Allergies Active Allergy Reactions Criticality Noted Date Comments Covid Vaccine 6971-9142 (Xbb .1.5) Recombinant Anaphylaxis High 03/26/2023 Morphine Hives High 03/16/2022 Naproxen Hallucination Medium 05/19/2022 Medications benzonatate (TESSALON) 200 mg capsule Take 1 Capsule (200 mg) by mouth 3 times daily. 30 Capsule 04/18/2023 3:45 PM PARTITION MAKING 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 04/18/2023 Active acetaminophen (TYLENOL) 500 mg tablet Take 1 Tablet (500 mg) by mouth every 6 hours. 60 Tablet 06/19/2023 Active ibuprofen (MOTRIN) 600 mg tablet Take 1 Tablet (600 mg) by mouth every 6 hours. 60 Tablet 06/19/2023 Active oxyCODONE (ROXICODONE) 5 mg tabletIndicatio ns:Delivery by classical section Take 1 Tablet (5 mg) by mouth every 4 hours as needed for Break-Throug h Pain. Max Daily Amount: 6 tablets 7 Tablet 06/19/2023 Active sennosides-docu sate sodium (SENNA-S) 8.6-50 mg tablet Take 1 Tablet by mouth daily. 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, NICU - TKV 06/17/2023 resulting from in-vitro fertilization 06/11/2023 Gestational hypertension, second trimester 06/10 Premature rupture of membranes in second trimest er 06/04/2023 Nasal congestion related to 04/18/2023 Twin gestation in second trimester 04/18/2023 Dichorionic diamniotic twin 03/26/2023 Primigravida of advanced maternal age in first t rimester 03/26/2023 resulting from in vitro fertilization in first trimester 03/26/2023 Obesity in , antepartum 03/26/2023 Supervision of high risk in first trim roseanne 03/26/2023 Encounter for assisted repro ductive fertility procedure cycle 10/12/2022 Polycystic ovary syndrome 07/03/2022 Abnormal mammogram 05/19/2022 Encounters Date Type Department Care Team Description 08/08/2024 External Device Data STL ABSTRACTION Provider, Abstract 08/01/2024 External Device Data ST[facility] ABSTRACTION Provider, Abstract 07/27/2024 External Device Data [facility] ABSTRACTION Provider, Abstract 07/27/2024 External Device Data [facility] ABSTRACTION Provider, Abstract from Last 3 Months Immunizations Immunization Administration Dates Next Due (ADACEL/BOOSTRIX)(10 YR UP) TDAP VACCINE, 0.5ML, IM 06/20/2023 Family History Medical History Relation Name Comments Blood Clots Father Josué After surgery Diabetes Father Josué Heart Disease Father Josué High Cholesterol Father Josué Cancer Maternal Grandfather Jeffrey Stroke Maternal Grandmother Irena Breast Cancer Paternal Grandmother Ida Cancer Paternal Grandmother Ida Relation Name Status Comments Father Josué Maternal Grandfather Jeffrey Maternal Grandmother Irena Paternal Grandmother Ida Social History Tobacco Use Types Packs/Day Years Used Date Smoking Tobacco: Never Smokeless Tobacco: Never Tobacco Cessation:Counseling Given: Not Answered Alcohol Use Standard Drinks/Week Comments Not Currently 0 (1 standard drink = 0.6 oz pur e alcohol) Comments No Sex and Gender Information Value Date Recorded Sex Assigned at Not on file Legal Sex Female 6:23 PM 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 MAKING 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 Gender Identity Not on file Sexual Orientation Not on file Last Filed Vital Signs Vital Sign Reading Time Taken Comments Blood Pressure 114/78 06/28/2023 2:59 PM CDT Pulse 88 06/20/2023 7:33 AM CDT Temperature 36.7 C (98.1 F) 06/20/2023 7:33 AM CDT Respiratory Rate 16 06/20/2023 7:33 AM CDT Oxygen Saturation 100% 06/19/2023 10:33 PM CDT Inhaled Oxygen Concentration - - Weight 105.2 kg (232 lb) 07/27/2023 8:56 AM CDT Height 157.5 cm (5' 2) 07/27/2023 8:56 AM CDT Body Mass Index 42.43 07/27/2023 8:56 AM CDT Plan of Treatment Health Maintenance Due Date Last Done Comments HPV VACCINES (1 - 3-dose series) 1996 HEPATITIS B VACCINES (1 of 3 - 19+ 3-dose series) 2000 COVID-19 Vaccine (2023-2 5 season) 2023 04/03/2021, 04/04/2020, 03/06/2020 BREAST CANCER SCREENING 12/01/2023 11/30/2022 INFLUENZA VACCINE (#1) 2024 PAP SMEAR 07/26/2026 07/27/2023, 02/08/2017 CERVICAL CANCER SCREENING 07/26/2028 HPV/Cotest (21-29) 07/26/2028 07/27/2023 HPV/Cotest (30-65) 07/26/2028 07/27/2023 DTAP/TDAP/TD VACCINES (2 - T d or Tdap) 06/19/2033 06/20/2023 Procedures Procedure Name Priority Date/Time Associated Diagnosis Comments CERV/VAG CYTO AGE BASED SCREEN PAP Routine 07/27/2023 10:34 AM CDT Well woman exam with routine gynecological exam from Last 3 Months or Most Recently Relevant to Health Maintenance Results * CERV/VAG CYTO AGE BASED SCREEN PAP (07/27/2023 10:34 AM CDT) COMMENT (PAP): [facility] [place] Comment: This order for age-based cervical cancer and STI screening follows ACOG guidelines(PB 168, 140, AXQ566). See individual assays for performing site location. CLINICAL INFORMATION [facility] [place] Comment: Routine exam WWE LAST MENSTRUAL PERIOD [facility] [place] Comment:NONE GIVEN PREV PAP: [facility] [place] Comment:NONE GIVEN PREV BX: [facility] [place] Comment:NONE GIVEN SOURCE [facility] [place] Comment:Endocervix ADEQUACY: [facility] [place] Comment: Satisfactory for evaluation. Endocervical/transformation zone component present. Age and/or menstrual status not provided PAP INTERP [facility] [place] Comment: Cytology Results: Negative for intraepithelial lesion or malignancy. COMMENT (PAP TEST) [facility] [place] Comment: This Pap test has been evaluated with computer assisted technology. LABEL STAMPER: Dinora Lr Comment: CAKTANO(ASCP) CT Screening Location: [place] , [place] [address] EXPLANATORY NOTE [facility] [place] Comment: EXPLANATORY NOTE: The Pap is a screening test for cervical cancer. It is not a diagnostic test and is subject to false negative and false positive results. It is most reliable when a satisfactory sample, regularly obtained, is submitted with relevant clinical findings and history, and when the Pap result is evaluated along with historic and current clinical information. HPV E6/E7 Not Detected Not Detected [facility] [place] Comment: Methodology: [employer] Solution Architect-Mediated Amplification This assay detects E6/E7 viral messenger RNA (mRNA) from 14 high-risk HPV types (16,18,31,33,35,39,45,51,52,56,58,59,66,68). Cervical sources are required for HPV testing. If a vaginal source from a patient who has had a total hysterectomy with removal of cervix was submitted, please contact the testing laboratory for alternative testing options. For additional information, please refer to http://education.Synapse [employer]/faq/FTG893z7 (This link if provided for information/ educational purposes only.) Test Performed at: [facility] [id number] [place] [address] Agustín CORDOBA Genital SWAB OF ENDOCERVIX / Unknown 07/27/2023 10:34 AM CDT 07/28/2023 2:44 AM CDT Terrance Silva MD PATHOLOGY/CYTOLOGY ORDERABLE S Final Result [facility] [phone] [facility] [id number] [id number] from Last 3 Months or Most Recently Relevant to Health Maintenance Insurance RX OPTUM RX Member Subscriber Plan / Payer (Ef fective for All Dates) Name:Diana Arroyo Relation to Subscriber:Self Name:DinaSusanneDiana Payer ID:Not on file Group ID:[id number] Type:RX Commercial Address: [address] [employer] [place] [employer] (INTERNAL) [facility] [id number] Advance Directives For more information, please contact: [phone] Documents on File Type Date Recorded Patient Branch Rental Manager Expl anation Advance Directive POA 06/16/2023 4:10 PM A dvance Directive POA Advance Directive Living Will 06/16/2023 4:09 PM Advance Directive Living Will * Full Code (Latest Code Status on File) Date Activated Date Inactivated Comments 06/17/2023 2:45 AM 06/20/2023 1:12 PM * Full Code Date Activated Date Inactivated Comments 06/17/2023 2:45 AM 06/17/2023 2:45 AM * Full Code Date Activated Date Inactivated Comments 06/05/2023 8:11 AM 06/17/2023 2:45 AM * Full Code Date Activated Date Inactivated Comments 06/04/2023 2:57 AM 06/05/2023 8:11 AM * Full Code Date Activated Date Inactivated Comments 04/18/2023 1:18 PM 04/18/2023 5:59 PM
[2024-09-23 10:58] VITALS: BP 104/73; PULSE 81; RESP 20; TEMP 36.9; O2SAT 100
[2024-09-23 11:51] VITALS: BP 134/73; PULSE 77; RESP 18; O2SAT 100
--- OUTSIDE RECORDS SUMMARY | 2024-09-23 12:08 | XMS_ITS | Clinical Summary ---
Author Organization [facility] Address [address] [place] [address] Care Team Providers Care Field Broomer Name Role Phone Unavailable Primary Care Provider Unavailabl e Allergies Active Allergy Reactions Criticality Noted Date Comments Covid Vaccine [id number] (Xbb .1.5) Recombinant Anaphylaxis High 03/26/2023 Morphine Hives High 03/16/2022 Naproxen Hallucination Medium 05/19/2022 Medications benzonatate (TESSALON) 200 mg capsule Take 1 Capsule (200 mg) by mouth 3 times daily. 30 Capsule 04/18/2023 3:45 PM MARKETING PROJECT LEAD 04/18/2023 Active acetaminophen (TYLENOL) 500 mg tablet [...] on file Legal Sex Female 6:23 PM MARKETING PROJECT LEAD Gender Identity Not on file Sexual Orientation [...] PAP (07/27/2023 10:34 AM CDT) COMMENT (PAP): [facility] [place] Comment: This order for age-based cervical cancer and STI screening follows ACOG guidelines(PB 168, 140, EEM293). See individual assays for performing site location. CLINICAL INFORMATION [facility] [place] Comment: Routine exam WWE LAST MENSTRUAL PERIOD [facility] [place] Comment:NONE GIVEN PREV PAP: [facility] [place] Comment:NONE GIVEN PREV BX: [facility] [place] Comment:NONE GIVEN SOURCE [facility] [place] Comment:Endocervix ADEQUACY: [facility] [place] Comment: Satisfactory for evaluation. Endocervical/transformation zone component present. Age and/or menstrual status not provided PAP INTERP [facility] [place] Comment: Cytology Results: Negative for intraepithelial lesion or malignancy. COMMENT (PAP TEST) [facility] [place] Comment: This Pap test has been evaluated with computer assisted technology. FOOT MITER OPERATOR: Dinora Lr Comment: CAKTANO(ASCP) CT Screening Location: [place] [address] , [place] [address] EXPLANATORY NOTE [facility] [place] Comment: EXPLANATORY NOTE: The Pap is a [...] information. HPV E6/E7 Not Detected Not Detected [facility] [place] Comment: Methodology: Automation Manager-Mediated Amplification This assay detects E6/E7 viral messenger RNA (mRNA) from 14 high-risk HPV types (16,18,31,33,35,39,45,51,52,56,58,59,66,68). Cervical sources are required for HPV testing. If a vaginal source from a patient who has had a total hysterectomy with removal of cervix was submitted, please contact the testing laboratory for alternative testing options. For additional information, please refer to http://education.GENWI/faq/RNJ894w5 (This link if provided for information/ educational purposes only.) Test Performed at: [facility] [id number] [place] [address] Agustín CORDOBA Genital SWAB OF ENDOCERVIX / Unknown 07/27/2023 10:34 AM CDT 07/28/2023 2:44 AM CDT Terrance Silva MD PATHOLOGY/CYTOLOGY ORDERABLE S Final Result [facility] [phone] [facility] [id number] [id number] from Last 3 Months or Most Recently Relevant to Health Maintenance Insurance RX [employer] RX Member Subscriber Plan / Payer (Ef fective for All Dates) Name:Diana Arroyo Relation to Subscriber:Self Name:DinaSusanneDiana Payer ID:Not on file Group ID:[id number] Type:RX Commercial Address: [address] [employer] [place] [employer] (INTERNAL) [facility] Internal [facility] [id number] Advance Directives For more information, please contact: [phone] Documents on File Type Date Recorded 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
--- OUTSIDE RECORDS SUMMARY | 2024-09-23 12:08 | XMS_ITS | Continuity of Care Document ---
Author Organization [facility] Address [address] [place] [address] Phone Care Team Providers Care Fur Farmer Name Role Phone Annette Reagan DO Unavailable [...] bursa 2009 Kenalog Triamcinolone acetonide inj Office/outpatient visit,[facility], [facility] 2009 X-ray exam lower spine 2-3 views 2009 X-ray exam of hip, complete X-ray exam of pelvis, 1-2 views 010 Advance Directives Directive Yes / No Effective Date File Name No Information Encounters Encounter Description Practice Location Reason(s) For Visit Diagnoses Date Provider Providers Copied on Encounter [facility] [employer] [facility], [address], [id number], [place] tel:[phone] [employer] [facility] No Information 6 Tez Bryant. [address], [id number], [place]. tel:[phone] [employer] [facility], [address], [id number], [place] tel:[phone] [employer] [facility] Encounter for pre-employme nt examination 6 Tez Bryant. [address] [facility], [place] [address], [place], [place], [id number], [place]. tel:[phone] Office/outpa tient visit,est, [facility] [employer] [facility], [address], [id number], [place] tel:[phone] [employer] [facility] JOINT PAIN-PELVIS 1 No Information [facility], [address] [facility] [address], [place], [place], [id number], [place] tel:[phone] [facility] No Information 8 0 Administrative Provider. [address] [facility] [address], [place], [place], [id number], [place]. tel:[phone] Office/outpa tient visit,est, mod [facility], [address] [address], [place], [place], [id number], [place] tel:[phone] [facility] No Information 0-201 0 No Information Office/outpa tient visit,est, mod [facility], [address] [place] [address], [place], [place], [id number], [place] tel:[phone] [facility] No Information 9 0 No Information [facility], [address] [place] [address], [place], [place], [id number], [place] tel:[phone] [facility] No Information 0 Administrative Provider. [address] [facility] [address], [place], [place], [id number], [place]. tel:[phone] [facility], [address] [place] [address], [place], [place], [id number], [place] tel:[phone] [facility] No Information 0 No Information [facility], [address] [place] [address], [place], [place], [id number], [place] tel:[phone] [facility] No Information 0 No Information [facility], [address] [place] [address], [place], [place], [id number], [place] tel:[phone] [facility] No Information 0 No Information [facility], [address], [id number], [place] tel:[phone] [facility] No Information 0 Administrative Provider. [address] [facility], [address], [place], [place], [id number], [place]. tel:[phone] [facility], [address] [facility] [address], [place], [place], [id number], [place] tel:[phone] [facility] No Information May-0 7-201 0 No Information [facility], [address] [facility] [address], [place], [place], [id number], [place] tel:[phone] [facility] No Information Apr-0 9-201 0 No Information [facility], [address] [facility] [address], [place], [place], [id number], [place] tel:[phone] [facility] No Information Mar-3 0-201 0 No Information [facility], [address] [facility] [address], [place], [place], [id number], [place] tel:[phone] [facility] No Information Mar-3 0-201 0 No Information [facility], [address] [facility] [address], [place], [place], [id number], [place] tel:[phone] [facility] No Information Mar-3 0-201 0 No Information [facility], [address] [facility] [address], [place], [place], [id number], [place] tel:[phone] [facility] No Information Mar-2 6-201 0 [facility]. [address] [facility], [address], [place], [place], [id number], [place]. tel:[phone] Office/outpa tient visit,est, mod [facility], [address] [facility] [address], [place], [place], [id number], [place] tel:[phone] [facility] No Information Mar-2 6-201 0 No Information Office/outpa tient visit,est, mod [facility], [address] [facility] [address], [place], [place], [id number], [place] tel:[phone] [facility] No Information Mar-1 5-201 0 No Information [facility], [address] [facility] [address], [place], [place], [id number], [place] tel:[phone] [facility] [employer] [facility] No Information 0 No Information Office/outpa tient visit,[facility], [facility], [address] [facility] [address], [place], [place], [id number], [place] tel:[phone] [facility] [employer] [facility] No Information 0 No Information Office/outpa tient visit,[place], [facility], [address] [facility] [address], [place], [place], [id number], [place] tel:[phone] [facility] [employer] [facility] No Information 0 No Information Family History Family Member Type Diagnosis Age At Onset No Information Payers Payer name Insurance type Covered republican ID Authorcasa kristoferviv(s) [facility] [id number] Social History Type Description Quantity Date Captured [...]
--- OUTSIDE RECORDS SUMMARY | 2024-09-23 12:08 | XMS_ITS | Clinical Summary ---
Author Organization 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
--- OUTSIDE RECORDS SUMMARY | 2024-09-23 12:08 | XMS_ITS | Clinical Summary ---
Author Organization [facility] Address [address] [place] [address] Care Team Providers Care Raveler Name Role Phone Alisa Hudson Primary Care Provider [phone] Lexy Sargent MD Unavailable [phone] Allergies Active Allergy Reactions Criticality Noted Date Comments Covid Vaccine [id number] (Xbb .1.5) Recombinant Anaphylaxis High 03/26/2023 Covid-19 [...] Description 09/23/2024 11:00 AM CDT Office Visit [facility] at [address] [address] Howard Maciel, PAMELA Abdominal pain [...] - Breast Cancer Thyroid disease Paternal Grandmother Ida Basse t - Breast Cancer Miscarriages / [...] 2 Alive Paternal Grandfather Paternal Grandmother Ida Basset - Breast Cancer Aliv e Sister 1 [...] on file Legal Sex Female 3:03 PM SIPHON OPERATOR Gender Identity Female 03/20/2022 8:42 AM SIPHON OPERATOR Sexual Orientation Straight 03/20/2022 8: 42 AM SIPHON OPERATOR Obstetrics History Para Term AB IAB SAB [...] 162.6 cm (5' 4) 03/04/2023 2:12 PM SIPHON OPERATOR Body Mass Index 40.34 03/04/2023 2:12 PM SIPHON OPERATOR Plan of Treatment Health Maintenance Due Date Last Done Comments Cervical Cancer Screening 1981 Depression Screening 1981 Varicella Vaccines (1 of 2 - 13+ 2-dose series) 1994 Regular Well Visit/Exam 18-64 12/04/1999 Covid-19 Vaccine ( season) 2023 04/03/2021, 04/04/2020, 03/06/2020 Influenza Vaccine [...] Read Routine (OP Routine) 05/01/2024 8:32 AM SIPHON OPERATOR Screening mammogram, encounter for HEPATITIS C ANTIBODY Routine 05/01/2022 12:10 PM SIPHON OPERATOR Screening for STDs (sexually transmitted diseases) from Last 3 Months or Most Recently Relevant to Health Maintenance Results * Screening Mammogram Bilateral W Yair (05/01/2024 8:32 AM SIPHON OPERATOR) Anatomical Region Laterality Modality Breast Bilateral Mammography Narrative 05/01/2024 1:23 PM SIPHON OPERATOR Mammogram Technique: Bilateral Digital Breast Tomosynthesis, Bilateral C-view 2D Screening mammogram. Views obtained: bilateral craniocaudal and bilateral mediolateral oblique. Computer Aided Detection was performed. Mammogram Findings: The present examination has been compared to a prior imaging study performed at [facility] on 11/30/2022. There are scattered areas of [...] to a prior imaging study performed at [facility] on 11/30/2022. There are scattered areas of fibroglandular density. There is no suspicious abnormality in either breast. Impression: There is no mammographic evidence of malignancy. Annual screening mammography is recommended. OVERALL FINAL ASSESSMENT: BI-RADS CATEGORY 1: Negative. us Self Screening Mammogram IMG MAMMO PROCEDURES Fi nal Result * Hepatitis C antibody (05/01/2022 12:10 PM SIPHON OPERATOR) Hep C Ab Non Reactive Non Reactive [facility] - 01 Comment: HCV antibody alone does not differentiate between previously resolved infection and active infection. Equivocal and Reactive HCV antibody results should be followed up with an HCV RNA test to support the diagnosis of active HCV infection. Blood 05/01/2022 12:1 0 PM SIPHON OPERATOR 05/01/2022 Narrative [facility] - 05/02/2022 7:10 AM SIPHON OPERATOR Performed at: 01 - [facility] [id number] Shank Piece Tacker: German Watts PhD, Phone: [phone] Shahla Maciel MD LAB MICROBIOLOGY - GENERAL OR DERABLES Final Result [facility] - 01 from Last 3 Months or Most Recently Relevant to Health Maintenance [place] Advance Directives For more information, please contact: [phone] * Full Code (Latest Code Status on File) Date Activated Date Inactivated Comments 10/16/2022 8:18 AM 10/16/2022 1:50 PM Care Teams Raveler Relationship Specialty Start Date End Date Alisa Hudson DO PCP - General Family Medicine 02/02/22 Lexy Sargent MD [address] [address] Referring Physician Gynecology 02/02/22
--- OUTSIDE RECORDS SUMMARY | 2024-09-23 12:08 | XMS_ITS | Clinical Summary ---
Author Organization [facility] Address [address] [place] [address] Care Team Providers Care Store Mgr Name Role Phone Unavailable Primary Care Provider Unavailabl e Source Comments [facility],non-owned Affiliates and Associated Physician Practices is amultiple site organization consisting of ambulatory clinics and hospital sitesin [place], [place], [place] and [place]. This disclosure is being madepursuant to the Care Everywhere program and may not contain all information available regarding this patient. Last updated 17.[facility] Social History Tobacco Use Types Packs/Day Years Used Date Smoking Tobacco: Never Assessed Comments Unknown Sex and Gender Information Value Date Recorded Sex Assigned at Not on file Legal Sex Female 9:25 AM BRIDGE EXPERT Gender Identity Not on file Sexual Orientation [...]
--- OUTSIDE RECORDS SUMMARY | 2024-09-23 12:08 | XMS_ITS | Referral Summary ---
Author Organization [facility] Address [address] [place] [address] Care Team Providers Care Correctional Casework Specialist Name Role Phone Alisa Hudson Primary Care Provider [phone] Lexy Sargent MD Unavailable [phone] Encounters Date Type Department Care Team Description 09/23/2024 11:00 AM CDT Office Visit [facility] at [address] [id number] Howard Maciel NP Abdominal pain (Primary Dx); Generalized abdominal tenderness, rebound tenderness presence not specified; Diarrhea, unspecified type from Last 3 Months Allergies Active Allergy Reactions Criticality Noted Date Comments Covid Vaccine [id number] (Xbb .1.5) Recombinant Anaphylaxis High 03/26/2023 Covid-19 [...] on file Legal Sex Female 3:03 PM CANCER SPEC Gender Identity Female 03/20/2022 8:42 AM CANCER SPEC Sexual Orientation Straight 03/20/2022 8: 42 AM CANCER SPEC Last Filed Vital Signs Vital Sign Reading [...] 162.6 cm (5' 4) 03/04/2023 2:12 PM CANCER SPEC Body Mass Index 40.34 03/04/2023 2:12 PM CANCER SPEC Plan of Treatment Not on file Procedures Procedure Name Priority Date/Time Associated Diagnosis Comments SCREENING MAMMOGRAM BILATERAL W CATHY Schedule Routine, Read Routine (OP Routine) 05/01/2024 8:32 AM CANCER SPEC Screening mammogram, encounter for HEPATITIS C ANTIBODY Routine 05/01/2022 12:10 PM CANCER SPEC Screening for STDs (sexually transmitted diseases) from Last 3 Months or Most Recently Relevant to Health Maintenance Results * Screening Mammogram Bilateral W Cathy (05/01/2024 8:32 AM CANCER SPEC) Anatomical Region Laterality Modality Breast Bilateral Mammography Narrative 05/01/2024 1:23 PM CANCER SPEC Mammogram Technique: Bilateral Digital Breast Tomosynthesis, Bilateral C-view 2D Screening mammogram. Views obtained: bilateral craniocaudal and bilateral mediolateral oblique. Computer Aided Detection was performed. Mammogram Findings: The present examination has been compared to a prior imaging study performed at [facility] on 11/30/2022. There are scattered areas of [...] to a prior imaging study performed at [facility] on 11/30/2022. There are scattered areas of fibroglandular density. There is no suspicious abnormality in either breast. Impression: There is no mammographic evidence of malignancy. Annual screening mammography is recommended. OVERALL FINAL ASSESSMENT: BI-RADS CATEGORY 1: Negative. us Self Screening Mammogram IMG MAMMO PROCEDURES Fi nal Result * Hepatitis C antibody (05/01/2022 12:10 PM CANCER SPEC) Hep C Ab Non Reactive Non Reactive [facility] - 01 Comment: HCV antibody alone does not differentiate between previously resolved infection and active infection. Equivocal and Reactive HCV antibody results should be followed up with an HCV RNA test to support the diagnosis of active HCV infection. Blood 05/01/2022 12:1 0 PM CANCER SPEC 05/01/2022 Narrative [facility] - 05/02/2022 7:10 AM CANCER SPEC Performed at: - [facility] [address] [id number] Wildlife Removal Specialist: German Watts PhD, Phone: [phone] us Shahla Maciel MD LAB MICROBIOLOGY - GENERAL OR DERABLES Final Result [facility] - 01 from Last 3 Months or Most Recently Relevant to Health Maintenance [place] Advance Directives For more information, please contact: [phone] * Full Code (Latest Code Status on File) Date Activated Date Inactivated Comments 10/16/2022 8:18 AM 10/16/2022 1:50 PM Care Teams Correctional Casework Specialist Relationship Specialty Start Date End Date Alisa HudsonDO PCP - General Family Medicine 02/02/22 Lxey Sargent MD [address] [address] Referring Physician Gynecology 02/02/22
--- OUTSIDE RECORDS SUMMARY | 2024-09-23 12:08 | XMS_ITS | Encounter Summary ---
Author Organization [facility] Address [address] [place] [address] Care Team Providers Care Senior Games Technician Name Role Phone Alisa Hudson Primary Care Provider [phone] Lexy Sargent MD Unavailable [phone] Reason for Visit * Reason Comments Abdominal Pain Diarrhea x 4 days 5 times since 5 am today Encounter Details Date Type Department Care Team (Late st Contact Info) Description 09/23/2024 11:00 AM CDT Office Visit [facility] Medical Group Convenient Care at [address] [address] Howard Maciel NP [address] [place] [address] [address] [place] [address] Abdominal pain (Primary Dx); Generalized [...] on file Legal Sex Female 3:03 PM EMT P Gender Identity Female 03/20/2022 8:42 AM EMT P Sexual Orientation Straight 03/20/2022 8: 42 AM EMT P documented as of this encounter Last Filed [...] Body Mass Index 40.34 03/04/2023 2:12 PM EMT P documented in this encounter Plan of Treatment [...] 06/19/2023 added in this encounter Care Teams Senior Games Technician Relationship Specialty Start Date End Date Alisa Hudson DO PCP - General Family Medicine 02/02/22 Lexy Sargent MD [address] [address] Referring Physician Gynecology 02/02/22 documented as of this encounter
--- OUTSIDE RECORDS SUMMARY | 2024-09-23 12:08 | XMS_ITS | Encounter Summary ---
Author Organization [facility] Address [address] [facility] [place] [address] Care Team Providers Care Test Designer Name Role Phone Unavailable Primary Care Provider Unavailabl e Encounter Details Date Type Department Care Team (Late st Contact Info) Description 01/29/2021 Lab Requisition [facility] [address] [place] [address] Aletha Granger MD Social History Tobacco Use Types Packs/Day Years Used Date Smoking Tobacco: Never Assessed Comments Unknown Sex and Gender Information Value Date Recorded Sex Assigned at Not on file Legal Sex Female 9:25 AM GUN EXAMINER Gender Identity Not on file Sexual Orientation Not on file documented as of this encounter Plan of Treatment Not on file documented as of this encounter Procedures Procedure Name Priority Date/Time Associated Diagnosis Comments HCG BETA BLOOD QUANTITATIVE STAT 01/29/2021 7:11 AM GUN EXAMINER documented in this encounter Results * HCG BETA BLOOD QUANTITATIVE (01/29/2021 7:11 AM GUN EXAMINER) hCG Quantitative <1.20 mIU/mL 01/30/20 2:40 PM GUN EXAMINER [facility] Blood BLOOD SPECIMEN / Unknown Venipuncture / Unknown 01/29/2021 7:11 AM GUN EXAMINER 01/29/2021 1:52 PM GUN EXAMINER Narrative [facility] - 01/29/2021 2:40 PM GUN EXAMINER hCG Reference Range, mIU/mL: Males 0-2.0 Non [...] MD LAB - CHEMISTRY ORDERABLES Final Result [facility] [address] [place] [address] documented in this encounter Visit Diagnoses Not on filedocumented in this encounter
--- NOTE | 2024-09-23 12:16 | ED_ITS ---
HPI - General Adult General Chief complaint: Abdominal Pain Stated complaint: abdominal pain since Wednesday Time Seen by Provider: 09/23/24 12:01 History of Present Illness HPI narrative: 43-year-old female presenting to the emergency department for evaluation for worsening diarrhea. Patient reports that she started having diarrhea symptoms on Wednesday and they have continued to worsen. Patient reports that she had approximately 6 episodes of diarrhea today. Patient denies any nausea or vomiting. Patient does report associated abdominal cramping. Patient describes the diarrhea as watery and denies any blood in her stool. Patient does have a prior history of a cholecystectomy section. Patient denies any prior history of C diff but states her family did have was suspected to be a viral diarrhea approximately 1 month ago. Patient has had no recent antibiotics. Related Data Allergies Allergy/AdvReac Type Severity Reaction Status Date / Time morphine Allergy Mild Hives Verified 09/23/24 11:54 naproxen AdvReac Mild hallucinati Verified 09/23/24 11:54 ons COVID-19 vaccine, mRNA, AdvReac Anaphylaxis Verified 09/23/24 11:54 [id number], L Review of Systems 2 Review of Systems: All systems reviewed & are unremarkable except as noted in HPI and below PMFSH Past Medical History Medical History (Updated 09/23/24 @ 14:51 by Jose Luis Weathers MD) Post covid-19 condition, unspecified Acromioclavicular joint arthritis Distal clavicle excision with the rotator cuff repair June 29, 2022 PCOS (polycystic ovarian syndrome) Depression GERD (gastroesophageal reflux disease) Anxiety Obesity Surgical History Surgical History (Updated 02/10/24 @ 07:45 by SEEMA Chauhan) Hx of section Right rotator cuff tear Right rotator cuff repair with acromioplasty and distal clavicle excision June 29, 2022 Hx of cholecystectomy (~05/2019) History of surgery on arm As a child Labral tear of right hip joint Underwent surgical repair in 05/2009 History of carpal tunnel release of both wrists 05/2018 and 08/2018 Family History Family History Father Diabetes mellitus Family history of hypercholesterolemia Hypertension Family history of cardiovascular disease Acute myocardial infarction Mother Hypertension Grandparent Acute myocardial infarction, Onset Age: 39 Cerebrovascular accident Carcinoma of colon Family history of malignant neoplasm of breast Social History Social History Smoking status: Never smoker Alcohol intake: current Alcohol use details: Drinks 1 bottle of wine over 1 to 2 week time Substance use: former Substance use type: marijuana Other substance usage details: RARE EDIBLE Last use: 01/2022 Lack of Transportation: No Lack of Food: Never True Current Housing: I Have Housing Concerned About Future Housing: No Difficulty Paying Gas/Electric Bills: No Difficulty Paying for Meds: No Currently Unemployed: No Education: Master's Degree or Higher Difficulty w/ Childcare or Family Care: No Living arrangements: with family Occupation/Education: occupation 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 HEAD: normocephalic, atraumatic. EYES: PERRLA/EOMI, conjunctivae clear. NOSE: Normal no drainage EARS:TMS clear with good light reflex. THROAT: Pharynx clear, no exudate. NECK: Supple. No adenopathy, no masses. RESPIRATORY: Airway patent, respirations nonlabored. Clear to auscultation bilaterally, no rales, rhonchi, wheezing. CARDIOVASCULAR: Regular rate and rhythm without murmurs rubs or gallops. ABDOMINAL: Normal bowel sounds with diffuse abdominal tenderness to palpation MUSCULOSKELETAL: Moves all extremities. Strength/ROM intact, No edema, No calf tenderness. NEURO: Alert. Cranial nerves II through XII intact. Good gait. Good coordination SKIN: Warm, dry. Normal Color Course Vital Signs Vital signs: Vital Signs Temperature 98.4 F 09/23/24 10:58 Pulse Rate 81 09/23/24 10:58 Respiratory Rate 20 09/23/24 10:58 Blood Pressure 104/73 09/23/24 10:58 Pulse Oximetry 100 09/23/24 10:58 Oxygen Delivery Room Air 09/23/24 10:58 Temperature 98.4 F 09/23/24 10:58 Pulse Rate 85 09/23/24 14:54 Respiratory Rate 15 09/23/24 14:54 Blood Pressure 135/66 09/23/24 14:54 Pulse Oximetry 100 09/23/24 14:54 Oxygen Delivery Room Air 09/23/24 11:51 Medical Decision Making MDM Narrative Medical decision making narrative: 43-year-old female presents emergency department for evaluation for persistent diarrhea. Patient reports he has had approximately 6 episodes of diarrhea today. Patient has been in the emergency department for approximately 4 hours and has had no further episodes of diarrhea. Patient was unable to provide a stool sample for us. Patient is currently afebrile with no leukocytosis and hemoglobin of 13.5. Patient has not INR 1.0. Patient has no acute abnormalities on her CMP occluding a normal creatinine. Patient's lactic acid is 0.9. Patient has no abnormalities on her UA. Patient did have some diffuse abdominal tenderness to palpation CT scan showed no acute abnormality. Patient is being provided Bentyl for pain control. Patient will be advised to follow a clear liquid diet for the next few days. Patient was updated results of workup she was comfortable the plan for discharge and close follow-up. Differential Diagnosis Differential Diagnosis: Colitis, diverticulitis, C diff, gastroenteritis, appendicitis Vital Signs Vital Signs: Vital Signs Temperature 98.4 F 09/23/24 10:58 Pulse Rate 81 09/23/24 10:58 Respiratory Rate 20 09/23/24 10:58 Blood Pressure 104/73 09/23/24 10:58 Pulse Oximetry 100 09/23/24 10:58 Oxygen Delivery Room Air 09/23/24 10:58 Temperature 98.4 F 09/23/24 10:58 Pulse Rate 85 09/23/24 14:54 Respiratory Rate 15 09/23/24 14:54 Blood Pressure 135/66 09/23/24 14:54 Pulse Oximetry 100 09/23/24 14:54 Oxygen Delivery Room Air 09/23/24 11:51 Lab Data Lab results reviewed: Yes I reviewed the patient's lab results. 09/23/24 12:38 09/23/24 12:38 Labs: Lab Results 09/23/24 09/23/24 Range/Units 12:38 12:41 WBC 10.1 H (4.5-10.0) K/mm3 RBC 4.61 (4.2-5.4) M/mm3 Hgb 13.5 (12.0-15.0) g/dL Hct 41.2 (37.0-47.0) % MCV 89.4 (80-100) fl MCH 29.3 (26-34) pg MCHC 32.8 (32-36) g/dl RDW 12.8 (11.5-14.5) % Plt Count 340 (150-375) k/mm3 MPV 9.9 (7.4-10.4) fl Immature Gran % (Auto) 0.5 (0-0.5) % Neut % (Auto) 53.0 (45.5-73.1) % Lymph % (Auto) 35.5 (18.3-44.2) % [place] % (Auto) 7.3 (2.6-8.5) % Eos % (Auto) 3.0 (0-4.4) % Baso % (Auto) 0.7 (0.2-1.2) % Lymph # (Auto) 3.58 H (0.9-3.2) K/mm3 [place] # (Auto) 0.7 H (0.1-0.6) K/mm3 Eos # (Auto) 0.3 (0-0.3) K/mm3 Baso # (Auto) 0.1 (0.0-0.1) K/mm3 Abs Immat Gran (auto) 0.05 H (0.00-0.031) K/mm3 Absolute Neuts (auto) 5.3 (1.3-6.7) K/mm3 Absolute Nucleated RBC 0.000 (0.0-0.012) K/mm3 Nucleated RBC % 0.0 (0.0-0.2) % PT 13.2 (11.1-14.7) Seconds INR 1.0 APTT 29.7 (22.3-36.8) Seconds Sodium 137 (137-145) mmol/L Potassium 3.8 (3.4-5.0) mmol/L Chloride 103 (98-107) mmol/L Carbon Dioxide 25 (22-30) mmol/L Anion Gap 9 (4-12) mmol/L BUN 13 (7-17) mg/dL Creatinine 0.74 (0.7-1.0) mg/dL Estim Creat Clear Calc 101 ml/min Estimated GFR > 60 (59 - ) Glucose 90 (65-110) mg/dL Lactic Acid 0.9 (0.7-2.0) mmol/L Calcium 9.3 (8.4-10.2) mg/dL Total Bilirubin 0.5 (0.2-1.3) mg/dL AST 28 (14-36) U/L ALT 22 (6-35) U/L Alkaline Phosphatase 52 (38-126) U/L Total Protein 7.8 (6.3-8.2) g/dL Albumin 4.3 (3.5-5.1) g/dL Urine Color Yellow (Yellow) Urine Appearance Clear (Clear) Urine pH 5.0 (5.0-9.0) Ur Specific [place] 1.009 (1.001-1.035) Urine Protein Negative (Negative) mg/dL Urine Glucose (UA) Negative (Negative) mg/dL Urine Ketones Negative (Negative) mg/dL Ur Blood (Man) Negative (Negative) Urine Nitrate Negative (Negative) Urine Bilirubin Negative (Negative) Urine Urobilinogen 0.2 (<2.0) mg/dL Leukocyte Esterase Rfl Negative (Negative) MAGGI/UL POC Urine HCG, Qual Negative (Negative) Imaging Data Radiologist's impression: Impressions Abdomen/Pelvis CT 09/23/24 13:49 IMPRESSION: 1. No acute abdominal abnormality. Discharge Plan Discharge Clinical Impression: Diarrhea Patient Disposition: Home Condition: Stable Instructions: Antibiotic Form, Clear Liquid Diet (ED), Acute Diarrhea (ED) Additional Instructions: Your CT scan was negative for acute abnormality. You are unable to provide us a stool sample to rule out Clostridium difficile I will. The rest of your workup was negative for acute abnormality. Follow a clear liquid diet for the next 1-3 days. Bentyl as needed for abdominal spasm and cramping. Have close follow-up with your primary care physician. If you have any worsening symptoms and please call or return to the emergency department. Patient Language: Estonian Prescriptions: New dicyclomine 10 mg capsule 10 mg PO TID Qty: 20 0RF No Action fluticasone propionate 50 mcg/actuation spray,suspension 1 spray intranasal BID Qty: 16 1RF Rx Instructions: administer into each nostril methylprednisolone 4 mg tablets,dose pack See Rx Instructions PO PER PKG DIR Qty: 21 0RF Rx Instructions: PO PER PKG DIR epinephrine [EpiPen] 0.3 mg/0.3 mL auto-injector 0.3 mg IM ONCE Qty: 2 3RF Rx Instructions: as a single dose; may repeat once Follow-up/Referrals: Vernace,Alisa M., DO [Primary Care Provider] -
[2024-09-23] MEDS: LACTATED RINGERS 1,000 ML 999 ML IV CONT (12:26)
[2024-09-23 12:43] LABS: BEDSIDEPREGUCG Negative (Negative)
[2024-09-23 12:46] LABS: Hematocrit 41.2 % (37.0-47.0); Hemoglobin 13.5 g/dL (12.0-15.0); Immature Granulocyte Percent A 0.5 % (0-0.5); Lymphocytes Absolute Auto 3.58 K/mm3 (0.9-3.2); Mean Corpuscular HGB Conc 32.8 g/dl (32-36); Mean Corpuscular Hemoglobin 29.3 pg (26-34); Mean Corpuscular Volume 89.4 fl (80-100); Nucleated Red Blood Cells Absolute Auto 0.000 K/mm3 (0.0-0.012); Nucleated Red Blood Cells Perc 0.0 % (0.0-0.2); Platelet Count Result 340 k/mm3 (150-375); Red Blood Count 4.61 M/mm3 (4.2-5.4); White Blood Count 10.1 K/mm3 (4.5-10.0)
[2024-09-23 12:48] LABS: Add Urine Microscopic? NO; Appearance Urine Clear (Clear); Glucose Urine UA Negative (Negative); Leukocyte Esterase Ur Negative LEU/UL (Negative); Nitrate Urine Negative (Negative); Specific Grav Ur 1.009 (1.001-1.035)
[2024-09-23 12:56] LABS: INR 1.0; Prothrombin Time 13.2 Seconds (11.1-14.7)
[2024-09-23 12:58] LABS: Partial Thromboplastin Time 29.7 Seconds (22.3-36.8)
[2024-09-23 13:21] LABS: Alanine Aminotransferase 22 U/L (6-35); Albumin Level 4.3 g/dL (3.5-5.1); Alkaline Phosphatase 52 U/L (38-126); Anion Gap 9 mmol/L (4-12); Aspartate Amino Transferase 28 U/L (14-36); Bilirubin,Total 0.5 mg/dL (0.2-1.3); Blood Urea Nitrogen 13 mg/dL (7-17); Calcium 9.3 mg/dL (8.4-10.2); Carbon Dioxide 25 mmol/L (22-30); Chloride 103 mmol/L (98-107); Estimated CRCL calculation 101 ml/min; Estimated Glomerular Filt Rate > 60; Glucose 90 mg/dL (65-110); Potassium 3.8 mmol/L (3.4-5.0); Sodium 137 mmol/L (137-145); Total Protein 7.8 g/dL (6.3-8.2)
[2024-09-23] MEDS: DICYCLOMINE HCL 10 MG CAPSULE PO (14:53)
[2024-09-23 14:54] VITALS: BP 135/66; PULSE 85; RESP 15; O2SAT 100
== END 2024-09-23 15:04 | disposition home or self-care (01) ==
PROVIDERS: Emergency Provider Emergency Medicine; PCP Family Medicine
DX: R19.7 Diarrhea, unspecified (principal); E28.2 Polycystic ovarian syndrome; K21.9 Gastro-esophageal reflux disease without esophagitis; Z86.16 Personal history of COVID-19; Z90.49 Acquired absence of other specified parts of digestive tract
CPT/HCPCS: 36415; 74177; 80053; 81003; 81025; 83605; 85025; 85610; 85730; 96360; 99284; A9270; J7120; Q9967

== ENCOUNTER 2024-09-27 19:25 | Emergency (ER) | payer BC, SELFPAY ==
[2024-09-27 19:30] VITALS: BP 132/74; PULSE 88; RESP 18; O2SAT 98
[2024-09-28] VITALS (10 sets, daily range): BP systolic 118–130; BP diastolic 61–75; PULSE 78–89; RESP 16–22; TEMP 36.6; O2SAT 97–99
[2024-09-28 01:51] LABS: Hematocrit 39.7 % (37.0-47.0); Hemoglobin 12.9 g/dL (12.0-15.0); Immature Granulocyte Percent A 0.5 % (0-0.5); Lymphocytes Absolute Auto 2.78 K/mm3 (0.9-3.2); Mean Corpuscular HGB Conc 32.5 g/dl (32-36); Mean Corpuscular Hemoglobin 28.8 pg (26-34); Mean Corpuscular Volume 88.6 fl (80-100); Nucleated Red Blood Cells Absolute Auto 0.000 K/mm3 (0.0-0.012); Nucleated Red Blood Cells Perc 0.0 % (0.0-0.2); Platelet Count Result 326 k/mm3 (150-375); Red Blood Count 4.48 M/mm3 (4.2-5.4); White Blood Count 10.7 K/mm3 (4.5-10.0)
[2024-09-28 02:25] LABS: Alanine Aminotransferase 40 U/L (6-35); Albumin Level 4.4 g/dL (3.5-5.1); Alkaline Phosphatase 46 U/L (38-126); Anion Gap 10 mmol/L (4-12); Aspartate Amino Transferase 33 U/L (14-36); Bilirubin,Total 0.7 mg/dL (0.2-1.3); Blood Urea Nitrogen 10 mg/dL (7-17); Calcium 9.2 mg/dL (8.4-10.2); Carbon Dioxide 24 mmol/L (22-30); Chloride 100 mmol/L (98-107); Estimated CRCL calculation 83 ml/min; Estimated Glomerular Filt Rate > 60; Glucose 144 mg/dL (65-110); Lipase 62 U/L (23-300); Potassium 3.5 mmol/L (3.4-5.0); Sodium 134 mmol/L (137-145); Total Protein 7.3 g/dL (6.3-8.2)
[2024-09-28 03:54] LABS: BEDSIDEPREGUCG Negative (Negative)
[2024-09-28 04:09] LABS: Add Urine Microscopic? YES; Appearance Urine Cloudy (Clear); Glucose Urine UA Negative (Negative); Leukocyte Esterase Ur Negative LEU/UL (Negative); Nitrate Urine Negative (Negative); Non Pathogenic Casts 0-2; Specific Grav Ur 1.025 (1.001-1.035)
--- OUTSIDE RECORDS SUMMARY | 2024-09-28 04:57 | XMS_ITS | Clinical Summary ---
Author Organization [facility] Address [address] [place] [address] Care Team Providers Care Lens Fabricating Machine Tender Name Role Phone Unavailable Primary Care Provider Unavailabl e Social History Tobacco Use Types Packs/Day Years Used Date Smoking Tobacco: Never Assessed Comments Unknown Sex and Gender Information Value Date Recorded Sex Assigned at Not on file Legal Sex Female 12:13 PM MANAGER FILE Gender Identity Not on file Sexual Orientation [...]
--- OUTSIDE RECORDS SUMMARY | 2024-09-28 04:57 | XMS_ITS | Referral Summary ---
Author Organization [facility] Address [address] [place] [address] Care Team Providers Care Director Of Quality Control Name Role Phone Alisa Hudson Primary Care Provider [phone] Lexy Sargent MD Unavailable [phone] Encounters Date Type Department Care Team Description 09/23/2024 11:00 AM CDT Office Visit [facility] [address] [phone] Howard Maciel NP Abdominal pain (Primary Dx); Generalized abdominal tenderness, rebound tenderness presence not specified; Diarrhea, unspecified type from Last 3 Months Allergies Active Allergy Reactions Criticality Noted Date Comments Covid Vaccine [id number] (Xbb .1.5) Recombinant Anaphylaxis High 03/26/2023 Covid-19 [...] on file Legal Sex Female 3:03 PM SOLAR PHOTOVOLTAIC INSTALLER Gender Identity Female 03/20/2022 8:42 AM SOLAR PHOTOVOLTAIC INSTALLER Sexual Orientation Straight 03/20/2022 8: 42 AM SOLAR PHOTOVOLTAIC INSTALLER Last Filed Vital Signs Vital Sign Reading [...] 162.6 cm (5' 4) 03/04/2023 2:12 PM SOLAR PHOTOVOLTAIC INSTALLER Body Mass Index 40.34 03/04/2023 2:12 PM SOLAR PHOTOVOLTAIC INSTALLER Plan of Treatment Not on file Procedures Procedure Name Priority Date/Time Associated Diagnosis Comments SCREENING MAMMOGRAM BILATERAL W CATHY Schedule Routine, Read Routine (OP Routine) 05/01/2024 8:32 AM SOLAR PHOTOVOLTAIC INSTALLER Screening mammogram, encounter for HEPATITIS C ANTIBODY Routine 05/01/2022 12:10 PM SOLAR PHOTOVOLTAIC INSTALLER Screening for STDs (sexually transmitted diseases) from Last 3 Months or Most Recently Relevant to Health Maintenance Results * Screening Mammogram Bilateral W Cathy (05/01/2024 8:32 AM SOLAR PHOTOVOLTAIC INSTALLER) Anatomical Region Laterality Modality Breast Bilateral Mammography Narrative 05/01/2024 1:23 PM SOLAR PHOTOVOLTAIC INSTALLER Mammogram Technique: Bilateral Digital Breast Tomosynthesis, Bilateral C-view 2D Screening mammogram. Views obtained: bilateral craniocaudal and bilateral mediolateral oblique. Computer Aided Detection was performed. Mammogram Findings: The present examination has been compared to a prior imaging study performed at [facility] on 11/30/2022. There are scattered areas [...] to a prior imaging study performed at [facility] on 11/30/2022. There are scattered areas of fibroglandular density. There is no suspicious abnormality in either breast. Impression: There is no mammographic evidence of malignancy. Annual screening mammography is recommended. OVERALL FINAL ASSESSMENT: BI-RADS CATEGORY 1: Negative. us Self Screening Mammogram IMG MAMMO PROCEDURES Fi nal Result * Hepatitis C antibody (05/01/2022 12:10 PM SOLAR PHOTOVOLTAIC INSTALLER) Hep C Ab Non Reactive Non Reactive [facility] - 01 Comment: HCV antibody alone does not differentiate between previously resolved infection and active infection. Equivocal and Reactive HCV antibody results should be followed up with an HCV RNA test to support the diagnosis of active HCV infection. Blood 05/01/2022 12:1 0 PM SOLAR PHOTOVOLTAIC INSTALLER 05/01/2022 Narrative [facility] - 05/02/2022 7:10 AM SOLAR PHOTOVOLTAIC INSTALLER Performed at: - [facility] [address] [id number] Lace Machine Operator: German Watts PhD, Phone: [phone] us Shahla Maciel MD LAB MICROBIOLOGY - GENERAL OR DERABLES Final Result [facility] - 01 from Last 3 Months or Most Recently Relevant to Health Maintenance [place] Advance Directives For more information, please contact: [phone] * Full Code (Latest Code Status on File) Date Activated Date Inactivated Comments 10/16/2022 8:18 AM 10/16/2022 1:50 PM Care Teams Director Of Quality Control Relationship Specialty Start Date End Date Alisa HudsonDO PCP - General Family Medicine 02/02/22 Lexy Sargent MD [address] [address] Referring Physician Gynecology 02/02/22
--- OUTSIDE RECORDS SUMMARY | 2024-09-28 04:57 | XMS_ITS | Clinical Summary ---
Author Organization [facility] Address [address] [facility] [place] [address] Care Team Providers Care Medical Education Coordinator Name Role Phone Unavailable Primary Care Provider Unavailabl e Allergies Active Allergy Reactions Criticality Noted Date Comments Covid Vaccine [id number] (Xbb .1.5) Recombinant Anaphylaxis High 03/26/2023 Morphine Hives High 03/16/2022 Naproxen Hallucination Medium 05/19/2022 Medications benzonatate (TESSALON) 200 mg capsule Take 1 Capsule (200 mg) by mouth 3 times daily. 30 Capsule 04/18/2023 3:45 PM DEVELOPMENT MANAGER 04/18/2023 Active acetaminophen (TYLENOL) 500 mg tablet [...] on file Legal Sex Female 6:23 PM DEVELOPMENT MANAGER Gender Identity Not on file Sexual Orientation [...] PAP (07/27/2023 10:34 AM CDT) COMMENT (PAP): [facility] [place] Comment: This order for age-based cervical cancer and STI screening follows ACOG guidelines(PB 168, 140, WCI462). See individual assays for performing site location. CLINICAL INFORMATION [facility] [place] Comment: Routine exam WWE LAST MENSTRUAL PERIOD [facility] [place] Comment:NONE GIVEN PREV PAP: [facility] [place] Comment:NONE GIVEN PREV BX: [facility] [place] Comment:NONE GIVEN SOURCE [facility] [place] Comment:Endocervix ADEQUACY: [facility] [place] Comment: Satisfactory for evaluation. Endocervical/transformation zone component present. Age and/or menstrual status not provided PAP INTERP [facility] [place] Comment: Cytology Results: Negative for intraepithelial lesion or malignancy. COMMENT (PAP TEST) [facility] [place] Comment: This Pap test has been evaluated with computer assisted technology. GREASE RACK WORKER: Dinora Lr Comment: CAKTANO(ASCP) CT Screening Location: [place] [address] , [place] [address] EXPLANATORY NOTE [facility] [place] Comment: EXPLANATORY NOTE: The Pap is a [...] information. HPV E6/E7 Not Detected Not Detected [facility] [place] Comment: Methodology: Golf Ball Trimmer-Mediated Amplification This assay detects E6/E7 viral messenger RNA (mRNA) from 14 high-risk HPV types (16,18,31,33,35,39,45,51,52,56,58,59,66,68). Cervical sources are required for HPV testing. If a vaginal source from a patient who has had a total hysterectomy with removal of cervix was submitted, please contact the testing laboratory for alternative testing options. For additional information, please refer to http://education.Wis.dm/faq/MFK943p1 (This link if provided for information/ educational purposes only.) Test Performed at: [facility] [address] [place] [address] Agustín CORDOBA Genital SWAB OF ENDOCERVIX / Unknown 07/27/2023 10:34 AM CDT 07/28/2023 2:44 AM CDT Terrance Silva MD PATHOLOGY/CYTOLOGY ORDERABLE S Final Result [facility] [phone] [facility] [address] [phone] from Last 3 Months or Most Recently Relevant to Health Maintenance Insurance RX [employer] RX Member Subscriber Plan / Payer (Ef fective for All Dates) Name:Diana Arroy[place] Relation to Subscriber:Self Name:DinaSusanneDiana Payer ID:Not on file Group ID:[id number] Type:RX Commercial Address: [address] [employer] (INTERNAL) [facility] [address] Advance Directives For more information, please contact: [phone] Documents on File Type Date Recorded Patient Pattern Maker Programer Expl anation Advance Directive POA 06/16/2023 4:10 [...]
--- OUTSIDE RECORDS SUMMARY | 2024-09-28 04:57 | XMS_ITS | Clinical Summary ---
Author Organization [facility] Address [address] [place] [address] Care Team Providers Care Refinery Superintendent Name Role Phone Unavailable Primary Care Provider Unavailabl e Source Comments [facility],non-owned Affiliates and Associated Physician Practices is amultiple site organization consisting of ambulatory clinics and hospital sitesin [place], [place], [place] and [place]. This disclosure is being madepursuant to the Care Everywhere program and may not contain all information available regarding this patient. Last updated 17.[facility] Social History Tobacco Use Types Packs/Day Years Used Date Smoking Tobacco: Never Assessed Comments Unknown Sex and Gender Information Value Date Recorded Sex Assigned at Not on file Legal Sex Female 9:25 AM GYPSUM CALCINER Gender Identity Not on file Sexual Orientation [...]
--- OUTSIDE RECORDS SUMMARY | 2024-09-28 04:57 | XMS_ITS | Patient Health Record ---
Author Organization [facility] Address [address] [place] [address] Care Team Providers Care Water Plant Operator Name Role Phone Deshawn Hewitt Primary Care Provider [phone] Reason For Referral No Information Immunizations Vaccine [...]
--- OUTSIDE RECORDS SUMMARY | 2024-09-28 04:57 | XMS_ITS | Continuity of Care Document ---
Author Organization [facility] Address [address] [place] [address] Phone Care Team Providers Care Data Examination Clerk Name Role Phone Annette Reagan DO Unavailable [...] bursa 2009 Kenalog Triamcinolone acetonide inj Office[facility]patient visit,[facility], [facility] [place] X-ray exam lower spine 2-3 views 2009 X-ray exam of hip, complete X-ray exam of pelvis, 1-2 views 010 Advance Directives Directive Yes / No Effective Date File Name No Information Encounters Encounter Description Practice Location Reason(s) For Visit Diagnoses Date Provider Providers Copied on Encounter [facility], [address], [id number], [place] tel:[phone] [facility] No Information 6 Tez Bryant. [address], [id number], [place]. tel:[phone] [facility], [address], [id number], [place] tel:[phone] [facility] Encounter for pre-employme nt examination 6 Tez [place]. [address] [facility], [place] [address], [place], [place], [id number], [place]. tel:[phone] Office/outpa [place]ient visit,[place], [facility], [address], [id number], [place] tel:[phone] [facility] JOINT PAIN-PELVIS 1 No Information [facility], [address] [facility] [address], [place], [place], [id number], [place] tel:[phone] [facility] No Information 8 0 Administrative Provider. [address] [facility], [facility] [address], [place], [place], [id number], [place]. tel:[phone] Office/outpa tient visit,est, mod [facility], [address] [address], [place], [place], [id number], [place] tel:[phone] [facility] No Information 0-201 0 No Information Office/outpa tient visit,est, mod [facility], [address] [address], [place], [place], [id number], [place] tel:[phone] [facility] No Information 9 0 No Information [facility], [address] [place] [address], [place], [place], [id number], [place] tel:[phone] [facility] No Information 0 Administrative Provider. [address] [facility], [facility] 100, [place], [place], [id number], [place]. tel:[phone] [facility], [address] [place] [address], [place], [id number], [place] tel:[phone] [facility] No Information 0 No Information [facility], [address] [place] [address], [place], [id number], [place] tel:[phone] [facility] No Information 0 No Information [facility], [address] [place] [address], [place], [place], [id number], [place] tel:[phone] [facility] No Information 0 No Information [facility], [address], [id number], [place] tel:[phone] [facility] No Information 0 Administrative Provider. [address] [facility], [address], [place], [place], [id number], [place]. tel:[phone] [facility], [address] [facility] [address], [place], [id number], [place] tel:[phone] [facility] No Information May-0 7-201 0 No Information [facility], [address] [facility] [address], [place], [place], [id number], [place] tel:[phone] [facility] No Information Apr-0 9-201 0 No Information [facility], [address] [facility] [address], [place], [place], [id number], [place] tel:[phone] [facility] No Information Mar-3 0-201 0 No Information [facility], [address] [facility] [address], [place], [place], [id number], [place] tel:[phone] [facility] No Information Mar-3 0-201 0 No Information [facility], [address] [facility] [address], [place], [place], [id number], [place] tel:[phone] [facility] No Information Mar-3 0-201 0 No Information [facility], [address] [facility] [address], [place], [place], [id number], [place] tel:[phone] [facility] No Information Mar-2 6-201 0 [facility]. [address] [facility], [address], [place], [place], [id number], [place]. tel:[phone] Office/outpa tient visit,est, mod [facility], [address] [facility] [address], [place], [id number], [place] tel:[phone] [facility] No Information Mar-2 6-201 0 No Information Office/outpa tient visit,est, mod [facility], [address] [facility] [address], [place], [id number], [place] tel:[phone] [facility] No Information Mar-1 5-201 0 No Information [facility], [address] [facility] [address], [place], [id number], [place] tel:[phone] [facility] No Information 0 No Information Office/outpa [facility]ient visit,[facility], [facility], [address] [facility] [address], [place], [id number], [place] tel:[phone] [facility] No Information 0 No Information Office/outpa [place]ient visit,[place], [facility], [address] [facility] [address], [place], [id number], [place] tel:[phone] [facility] No Information 0 No Information Family History Family Member Type Diagnosis Age At Onset No Information Payers Payer name Insurance type Covered democrat ID Authorcasa kristoferviv(s) [facility] [id number] Social History Type Description Quantity Date Captured [...]
--- OUTSIDE RECORDS SUMMARY | 2024-09-28 04:57 | XMS_ITS | Clinical Summary ---
Author Organization [facility] Address [address] [place] [address] Care Team Providers Care Warranty Coordinator Name Role Phone Alisa Hudson Primary Care Provider [phone] Lexy Sargent MD Unavailable [phone] Allergies Active Allergy Reactions Criticality Noted Date Comments Covid Vaccine [id number] (Xbb .1.5) Recombinant Anaphylaxis High 03/26/2023 Covid-19 [...] Description 09/23/2024 11:00 AM CDT Office Visit [facility] [address] [address] Howard Maciel, PAMELA Abdominal pain [...] on file Legal Sex Female 3:03 PM PATTERNMAKER METAL Gender Identity Female 03/20/2022 8:42 AM PATTERNMAKER METAL Sexual Orientation Straight 03/20/2022 8: 42 AM PATTERNMAKER METAL Obstetrics History Para Term AB IAB SAB [...] 162.6 cm (5' 4) 03/04/2023 2:12 PM PATTERNMAKER METAL Body Mass Index 40.34 03/04/2023 2:12 PM PATTERNMAKER METAL Plan of Treatment Health Maintenance Due Date [...] Read Routine (OP Routine) 05/01/2024 8:32 AM PATTERNMAKER METAL Screening mammogram, encounter for HEPATITIS C ANTIBODY Routine 05/01/2022 12:10 PM PATTERNMAKER METAL Screening for STDs (sexually transmitted diseases) from Last 3 Months or Most Recently Relevant to Health Maintenance Results * Screening Mammogram Bilateral W Yair (05/01/2024 8:32 AM PATTERNMAKER METAL) Anatomical Region Laterality Modality Breast Bilateral Mammography Narrative 05/01/2024 1:23 PM PATTERNMAKER METAL Mammogram Technique: Bilateral Digital Breast Tomosynthesis, Bilateral C-view 2D Screening mammogram. Views obtained: bilateral craniocaudal and bilateral mediolateral oblique. Computer Aided Detection was performed. Mammogram Findings: The present examination has been compared to a prior imaging study performed at [facility] on 11/30/2022. There are scattered areas of [...] to a prior imaging study performed at [facility] on 11/30/2022. There are scattered areas of fibroglandular density. There is no suspicious abnormality in either breast. Impression: There is no mammographic evidence of malignancy. Annual screening mammography is recommended. OVERALL FINAL ASSESSMENT: BI-RADS CATEGORY 1: Negative. us Self Screening Mammogram IMG MAMMO PROCEDURES Fi nal Result * Hepatitis C antibody (05/01/2022 12:10 PM PATTERNMAKER METAL) Hep C Ab Non Reactive Non Reactive [facility] - 01 Comment: HCV antibody alone does not differentiate between previously resolved infection and active infection. Equivocal and Reactive HCV antibody results should be followed up with an HCV RNA test to support the diagnosis of active HCV infection. Blood 05/01/2022 12:1 0 PM PATTERNMAKER METAL 05/01/2022 Narrative [facility] - 05/02/2022 7:10 AM PATTERNMAKER METAL Performed at: 01 - [facility] [id number] Point Of Care Technician: German Watts PhD, Phone: [phone] Shahla Maciel MD LAB MICROBIOLOGY - GENERAL OR DERABLES Final Result [facility] - 01 from Last 3 Months or Most Recently Relevant to Health Maintenance [place] Advance Directives For more information, please contact: [phone] * Full Code (Latest Code Status on File) Date Activated Date Inactivated Comments 10/16/2022 8:18 AM 10/16/2022 1:50 PM Care Teams Warranty Coordinator Relationship Specialty Start Date End Date Alisa Hudson DO PCP - General Family Medicine 02/02/22 Lexy Sargent MD [address] [address] Referring Physician Gynecology 02/02/22
--- OUTSIDE RECORDS SUMMARY | 2024-09-28 04:57 | XMS_ITS | Encounter Summary ---
Author Organization [facility] Address [address] [facility] [place] [address] Care Team Providers Care Appointment Clerk Name Role Phone Unavailable Primary Care Provider Unavailabl e Encounter Details Date Type Department Care Team (Late st Contact Info) Description 01/29/2021 Lab Requisition [facility] [address] [place] [address] Aletha Granger MD Social History Tobacco Use Types Packs/Day Years Used Date Smoking Tobacco: Never Assessed Comments Unknown Sex and Gender Information Value Date Recorded Sex Assigned at Not on file Legal Sex Female 9:25 AM QUALITY ASSURANCE CLERK Gender Identity Not on file Sexual Orientation Not on file documented as of this encounter Plan of Treatment Not on file documented as of this encounter Procedures Procedure Name Priority Date/Time Associated Diagnosis Comments HCG BETA BLOOD QUANTITATIVE STAT 01/29/2021 7:11 AM QUALITY ASSURANCE CLERK documented in this encounter Results * HCG BETA BLOOD QUANTITATIVE (01/29/2021 7:11 AM QUALITY ASSURANCE CLERK) hCG Quantitative <1.20 mIU/mL 01/30/20 2:40 PM QUALITY ASSURANCE CLERK [facility] Blood BLOOD SPECIMEN / Unknown Venipuncture / Unknown 01/29/2021 7:11 AM QUALITY ASSURANCE CLERK 01/29/2021 1:52 PM QUALITY ASSURANCE CLERK Narrative [facility] - 01/29/2021 2:40 PM QUALITY ASSURANCE CLERK hCG Reference Range, mIU/mL: Males 0-2.0 Non [...] MD LAB - CHEMISTRY ORDERABLES Final Result [facility] [address] [place] [address] documented in this encounter Visit Diagnoses Not on filedocumented in this encounter
--- NOTE | 2024-09-28 05:08 | ED.ABDPAIN ---
HPI - Abdominal Pain General Chief Complaint: Abdominal Pain Stated Complaint: abd pain. N/V/D Time Seen by Provider: 09/28/24 04:24 Source: patient Mode of arrival: ambulatory Limitations: no limitations History of Present Illness HPI narrative: Patient presents with report persistent diarrhea which is been going on for 8-9 days. Patient was seen for the same in this emergency department on Wednesday. She has had nausea abdominal pain and developed vomiting and given this new symptom she is presenting to the emergency department again given that she is unable to tolerate p.o.. States she has been taking Imodium but it does not help. She also tried to take the Bentyl that had been prescribed to her but had difficulty and her nausea/vomiting. States the frequency of her diarrheal stools is improving but is concerned because feels this is because she has not been eating/drinking anything as doing so seems to cause her to stool again, estimates 4 BMs in the past 24 hours. Describes a crampy abdominal sensation throughout. Stools have been watery throughout. In June and July she had the same issue with diarrhea but this was in the setting of her twin daughters having similar symptoms. They all experienced resolution in the interim. No current direct sick contacts, though her children potentially were exposed and she is also worried because her neice (also not sick) travels between the [facility] and [place] where she knows there was a giardia outbreak recently. She is not taking NSAIDs. Does use marijuana. Consumes alcohol occasionally , approximately 1 glass/week. Patient has never seen a tool grinder. She is hoping to see 1. She tried to make a phone call to get in to be seen and has called a few times but has not received a call back about a follow-up appointment. CT scan performed on 09/23/2024 was normal. Denies any vaginal bleeding or discharge. Her last menstrual period began approximately me a month ago and she is due. Last oral intake was some applesauce for lunch. No fevers but has been having chills. No recent antibiotics or travel. No prior colonoscopy. Abdominal surgeries include Caesarean section cholecystectomy. Related Data Allergies Allergy/AdvReac Type Severity Reaction Status Date / Time morphine Allergy Mild Hives Verified 09/25/24 15:34 naproxen AdvReac Mild hallucinati Verified 09/25/24 15:34 ons COVID-19 vaccine, mRNA, AdvReac Anaphylaxis Verified 09/25/24 15:34 [id number], L PMFSH Past Medical History Medical History Post covid-19 condition, unspecified Acromioclavicular joint arthritis Distal clavicle excision with the rotator cuff repair June 29, 2022 PCOS (polycystic ovarian syndrome) Depression GERD (gastroesophageal reflux disease) Anxiety Obesity Surgical History Surgical History Hx of section Right rotator cuff tear Right rotator cuff repair with acromioplasty and distal clavicle excision June 29, 2022 Hx of cholecystectomy (~05/2019) History of surgery on arm As a child Labral tear of right hip joint Underwent surgical repair in 05/2009 History of carpal tunnel release of both wrists 05/2018 and 08/2018 Family History Family History Father Diabetes mellitus Family history of hypercholesterolemia Hypertension Family history of cardiovascular disease Acute myocardial infarction Mother Hypertension Grandparent Acute myocardial infarction, Onset Age: 39 Cerebrovascular accident Carcinoma of colon Family history of malignant neoplasm of breast Social History Social History Smoking status: Never smoker Alcohol intake: current Alcohol use details: Drinks 1 bottle of wine over 1 to 2 week time Substance use: former Substance use type: marijuana Other substance usage details: RARE EDIBLE Last use: 01/2022 Lack of Transportation: No Lack of Food: Never True Current Housing: I Have Housing Concerned About Future Housing: No Difficulty Paying Gas/Electric Bills: No Difficulty Paying for Meds: No Currently Unemployed: No Education: Master's Degree or Higher Difficulty w/ Childcare or Family Care: No Living arrangements: with family 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 HEAD: Normocephalic, atraumatic. EYES: Non injected, non icteric ENT: Nares clear, no rhinorrhea or epistaxis. Gross auditory acuity intact. Tacky mucous membranes NECK: Supple. No meningismus. CHEST: Speaking in full sentences. No respiratory distress. HEART: Regular rate and rhythm. . ABDOMEN: Soft, nondistended. No rigidity or guarding. Not peritoneal EXTREMITIES: Normal range of motion. No lower extremity edema. SKIN: Warm, dry, no rash. NEURO: No focal deficits. Alert and oriented. Answering questions. Following commands. Normal speech without aphasia or dysarthria. PSYCH: Congruent mood and affect. Course Vital Signs Vital signs: Vital Signs Pulse Rate 88 09/27/24 19:30 Respiratory Rate 18 09/27/24 19:30 Blood Pressure 132/74 09/27/24 19:30 Pulse Oximetry 98 09/27/24 19:30 Temperature 97.9 F 09/28/24 05:43 Pulse Rate 78 09/28/24 07:23 Respiratory Rate 16 09/28/24 07:23 Blood Pressure 124/63 09/28/24 07:23 Pulse Oximetry 98 09/28/24 07:23 MDM - Abdominal Pain MDM Narrative Medical decision making narrative: Patient presents with 8-9 days of diarrhea. This has been associated with nausea and abdominal pain. Seen for the same and underwent CT abdominal pelvis imaging which was normal on 09/23/2024. Subsequently developed vomiting and given that she has been unable to tolerate p.o. is presenting into the emergency department. States her symptoms make it hard for her to trial the Bentyl she was prescribed at that time. Says that Immodium which her PCP advised is not working. In the emergency department she is afebrile with vital signs within normal limits. The differential for acute ( less than 14d) diarrhea includes infectious etiologies (viral, preformed toxins, toxins formed after colonization, invasive bacteria, and parasites), medications, inflammatory causes (IBD, radiation enteritis, ischemic colitis, diverticulitis), malabsorption, secretory causes, or motility disorders. Very mild leukocytosis. Urine with microscopic hematuria. test negative. Another CT scan is ordered however patient declines this as she tells the transmission technician that she recently had a CT scan it did not show anything so she does not believe there is any reason to get another. Stool studies are ordered. Patient states she will not be able to produce a stool sample as her diarrhea only occurs when she tries to eat or drink something. Patient receives IV fluids and subsequently p.o. challenges. Waited approximately 1 hour but still unable to produce stool for testing. Thyroid function normal. Discussed the diagnosis and differential of acute diarrhea with the patient. Encouraged her that although she does not feel well, no marked abnormalities on labs (electrolytes, kidney function, etc). Discussed the role an antiemetic. Advised her to avoid Imodium if possible and only if necessary to perform ADLs. Provided contact information for Gastroenterology but did advise that further interventions such as EGD/colonoscopy are typically reserved if diarrhea is more chronic and/or there are hemodynamic instabilities or concern for end organ/multi organ dysfunction. Patient is otherwise nontoxic appearing and stable for discharge. She verifies understanding and is ready to go Differential Diagnosis Differential diagnosis: Likely abdominal pain, diverticulitis, gastroenteritis and other (Thyroid dysfunction; enteritis, colitis) Medical Records Attestation: I reviewed the patient's medical records. Medical records narrative: 09/23/24 IMPRESSION: 1. No acute abdominal abnormality. Lab Data Attestation: I reviewed the patient's lab results. 09/28/24 01:44 09/28/24 01:44 Labs: Lab Results 09/28/24 09/28/24 09/28/24 Range/Units 01:44 03:50 03:52 WBC 10.7 H (4.5-10.0) K/mm3 RBC 4.48 (4.2-5.4) M/mm3 Hgb 12.9 (12.0-15.0) g/dL Hct 39.7 (37.0-47.0) % MCV 88.6 (80-100) fl MCH 28.8 (26-34) pg MCHC 32.5 (32-36) g/dl RDW 12.9 (11.5-14.5) % Plt Count 326 (150-375) k/mm3 MPV 9.4 (7.4-10.4) fl Immature Gran % (Auto) 0.5 (0-0.5) % Neut % (Auto) 63.0 (45.5-73.1) % Lymph % (Auto) 25.9 (18.3-44.2) % [place] % (Auto) 8.1 (2.6-8.5) % Eos % (Auto) 2.2 (0-4.4) % Baso % (Auto) 0.3 (0.2-1.2) % Lymph # (Auto) 2.78 (0.9-3.2) K/mm3 [place] # (Auto) 0.9 H (0.1-0.6) K/mm3 Eos # (Auto) 0.2 (0-0.3) K/mm3 Baso # (Auto) 0.0 (0.0-0.1) K/mm3 Abs Immat Gran (auto) 0.05 H (0.00-0.031) K/mm3 Absolute Neuts (auto) 6.8 H (1.3-6.7) K/mm3 Absolute Nucleated RBC 0.000 (0.0-0.012) K/mm3 Nucleated RBC % 0.0 (0.0-0.2) % Sodium 134 L (137-145) mmol/L Potassium 3.5 (3.4-5.0) mmol/L Chloride 100 (98-107) mmol/L Carbon Dioxide 24 (22-30) mmol/L Anion Gap 10 (4-12) mmol/L BUN 10 (7-17) mg/dL Creatinine 0.89 (0.7-1.0) mg/dL Estim Creat Clear Calc 83 ml/min Estimated GFR > 60 (59 - ) Glucose 144 H (65-110) mg/dL Calcium 9.2 (8.4-10.2) mg/dL Magnesium 2.2 (1.6-2.3) mg/dL Total Bilirubin 0.7 (0.2-1.3) mg/dL AST 33 (14-36) U/L ALT 40 H (6-35) U/L Alkaline Phosphatase 46 (38-126) U/L Total Protein 7.3 (6.3-8.2) g/dL Albumin 4.4 (3.5-5.1) g/dL Lipase 62 (23-300) U/L TSH 2.930 (0.465-4.680) uIU/mL Urine Color Dark yellow (Yellow) Urine Appearance Cloudy H (Clear) Urine pH 5.5 (5.0-9.0) Ur Specific [place] 1.025 (1.001-1.035) Urine Protein Trace (Negative) mg/dL Urine Glucose (UA) Negative (Negative) mg/dL Urine Ketones Trace H (Negative) mg/dL Ur Blood (Man) Negative (Negative) Urine Nitrate Negative (Negative) Urine Bilirubin Negative (Negative) Urine Urobilinogen 1.0 (<2.0) mg/dL Leukocyte Esterase Rfl Negative (Negative) MAGGI/UL Urine RBC 3-5 H (0-2) /hpf Urine WBC 0-5 (0-3) /hpf Ur Squamous Epith Cells Few (Few) /hpf Urine Bacteria None seen /hpf Urine Casts 0-2 POC Urine HCG, Qual Negative (Negative) Influenza A (RT-PCR) (Negative) Influenza B (RT-PCR) (Negative) SARS-CoV-2 RNA (RT-PCR) (Negative) 09/28/24 Range/Units 05:54 WBC (4.5-10.0) K/mm3 RBC (4.2-5.4) M/mm3 Hgb (12.0-15.0) g/dL Hct (37.0-47.0) % MCV (80-100) fl MCH (26-34) pg MCHC (32-36) g/dl RDW (11.5-14.5) % Plt Count (150-375) k/mm3 MPV (7.4-10.4) fl Immature Gran % (Auto) (0-0.5) % Neut % (Auto) (45.5-73.1) % Lymph % (Auto) (18.3-44.2) % [place] % (Auto) (2.6-8.5) % Eos % (Auto) (0-4.4) % Baso % (Auto) (0.2-1.2) % Lymph # (Auto) (0.9-3.2) K/mm3 [place] # (Auto) (0.1-0.6) K/mm3 Eos # (Auto) (0-0.3) K/mm3 Baso # (Auto) (0.0-0.1) K/mm3 Abs Immat Gran (auto) (0.00-0.031) K/mm3 Absolute Neuts (auto) (1.3-6.7) K/mm3 Absolute Nucleated RBC (0.0-0.012) K/mm3 Nucleated RBC % (0.0-0.2) % Sodium (137-145) mmol/L Potassium (3.4-5.0) mmol/L Chloride (98-107) mmol/L Carbon Dioxide (22-30) mmol/L Anion Gap (4-12) mmol/L BUN (7-17) mg/dL Creatinine (0.7-1.0) mg/dL Estim Creat Clear Calc ml/min Estimated GFR (59 - ) Glucose (65-110) mg/dL Calcium (8.4-10.2) mg/dL Magnesium (1.6-2.3) mg/dL Total Bilirubin (0.2-1.3) mg/dL AST (14-36) U/L ALT (6-35) U/L Alkaline Phosphatase (38-126) U/L Total Protein (6.3-8.2) g/dL Albumin (3.5-5.1) g/dL Lipase (23-300) U/L TSH (0.465-4.680) uIU/mL Urine Color (Yellow) Urine Appearance (Clear) Urine pH (5.0-9.0) Ur Specific [place] (1.001-1.035) Urine Protein (Negative) mg/dL Urine Glucose (UA) (Negative) mg/dL Urine Ketones (Negative) mg/dL Ur Blood (Man) (Negative) Urine Nitrate (Negative) Urine Bilirubin (Negative) Urine Urobilinogen (<2.0) mg/dL Leukocyte Esterase Rfl (Negative) MAGGI/UL Urine RBC (0-2) /hpf Urine WBC (0-3) /hpf Ur Squamous Epith Cells (Few) /hpf Urine Bacteria /hpf Urine Casts POC Urine HCG, Qual (Negative) Influenza A (RT-PCR) Negative (Negative) Influenza B (RT-PCR) Negative (Negative) SARS-CoV-2 RNA (RT-PCR) Negative (Negative) Discharge Plan Discharge Clinical Impression: Acute diarrhea Abdominal pain Qualifiers: Abdominal location: generalized Qualified Code(s): R10.84 - Generalized abdominal pain Nausea & vomiting Qualifiers: Vomiting type: unspecified Qualified Code(s): R11.2 - Nausea with vomiting, unspecified Patient Disposition: Home Condition: Stable Instructions: Antibiotic Form, Acute Nausea and Vomiting (DC), Acute Diarrhea (ED), Abdominal Pain (ED) Additional Instructions: Acute diarrhea is diarrhea that lasts less than 14 days. Continue to use the Bentyl/dicyclomine you were prescribed earlier. For nausea/vomiting, the oral disintegrating tablets of Zofran can help. Follow-up with primary care physician. The name of a tool grinder is listed below, particularly if symptoms persist. Rest and maintain your hydration. Gentle sips of water are fine and you can continue supplement if desired with electrolytes. Avoid milk or sugary drinks. Patient Language: Romanian Prescriptions: New ondansetron 4 mg tablet,disintegrating 4 mg PO Q8H PRN (Reason: nausea and vomiting) Qty: 10 0RF Follow-up/Referrals: Soren Soto MD [Physician] - Alisa Hudson DO [Primary Care Provider] - Stand Alone Forms: Work/School Release IP Time of Disposition: 07:03
[2024-09-28] MEDS: PROCHLORPERAZINE EDISYLATE 10 MG/2 ML VIAL IV PUSH (05:41)
[2024-09-28] MEDS: SODIUM CHLORIDE 0.9% IV 1,000 ML 999 ML IV CONT (05:41)
--- NOTE | 2024-09-28 05:45 | PC.NURSE ---
pt refusing CT scan. pt states I just got a CT scan with contrast on Wednesday. Nothing should have changed
[2024-09-28 05:56] LABS: Magnesium 2.2 mg/dL (1.6-2.3)
[2024-09-28 06:27] LABS: Thyroid Stimulating Hormone 2.930 uIU/mL (0.465-4.680)
[2024-09-28 08:54] LABS: Influenza A QL RT-PCR Negative (Negative); Influenza B QL RT-PCR Negative (Negative); SARS-CoV-2 RNA PCR Negative (Negative)
== END 2024-09-28 07:23 | disposition home or self-care (01) ==
PROVIDERS: Emergency Provider Student in an Organized Health Care Education/Training Program; PCP Family Medicine
DX: R19.7 Diarrhea, unspecified (principal); R11.2 Nausea with vomiting, unspecified; R10.84 Generalized abdominal pain; Z20.822 Contact with and (suspected) exposure to COVID-19; E28.2 Polycystic ovarian syndrome; K21.9 Gastro-esophageal reflux disease without esophagitis; Z90.49 Acquired absence of other specified parts of digestive tract
CPT/HCPCS: 36415; 80053; 81001; 81025; 83690; 83735; 84443; 85025; 87636; 96361; 96374; 99284; J0780; J7030

== ENCOUNTER 2025-01-31 14:53 | Emergency (ER) | payer BC, SELFPAY ==
--- NOTE | ~2025-01-31 | XR_ITS ---
EXAMINATION: XR foot LT min 3V, 01/31/2025 15:07 SALVATIONIST HISTORY: crush injury Lt 1 and 2 toes COMPARISON: No comparisons available. Findings: No acute fracture or malalignment. No significant degenerative changes. Soft tissues unremarkable. Impression: No acute fracture or malalignment. Reviewed, dictated and finalized at location P. ATIONIST Impression: No acute fracture or malalignment.
[2025-01-31 15:04] VITALS: BP 124/72; PULSE 96; RESP 16; TEMP 36.6; O2SAT 98
--- NOTE | 2025-01-31 15:44 | ED.LOWEXIN ---
HPI - Extremity Injury (Lower) General Chief Complaint: Extremity Injury, Lower Stated Complaint: L big toe and 2nd toe Time Seen by Provider: 01/31/25 15:30 Source: patient and RN notes reviewed Mode of arrival: ambulatory Limitations: no limitations History of Present Illness HPI Narrative: 44-year-old female Presents Express Care complaining of injury to left foot. Patient reports dropping her backpack with her laptop on her 1st and 2nd toe of her left foot. Patient's injury occurred approximately 2 1-2 hours ago. Patient reports slight bruising to her 1st toe. Patient denies any other injuries. Patient's has not taken anything to help with pain. Patient denies any significant past medical history. Related Data Home Medications ?Medication ?Instructions ?Recorded ?Confirmed ?Last Taken ?Type biotin 1,250 mcg-collagen 150 tablet PO 12/08/24 12/08/24 Unknown History mg-vit X-F-I-min-herbal 353 chew tablet cholecalciferol (vitamin D3) 50 50 mcg PO DAILY 12/08/24 12/08/24 Unknown History mcg (2,000 unit) capsule coenzyme Q10 30 mg capsule (Co 30 mg PO DAILY 12/08/24 12/08/24 Unknown History Q-10) cyanocobalamin-liver extract tablet tablet PO 12/08/24 12/08/24 Unknown History mvn-min no.114-FA 115 mcg-omega-3 tablet PO 12/08/24 12/08/24 Unknown History 35 mg-dha 25 mg-epa-fish chew tablet (Centrum ) Allergies Allergy/AdvReac Type Severity Reaction Status Date / Time morphine Allergy Mild Hives Verified 12/08/24 10:18 naproxen AdvReac Mild hallucinati Verified 12/08/24 10:18 ons COVID-19 vaccine, mRNA, AdvReac Anaphylaxis Verified 12/08/24 10:18 [id number], L Review of Systems Review of Systems: CONSTITUTIONAL: Denies fever, chills, or sweats. EYES: Denies visual changes, redness, or discharge. ENT: Denies rhinorrhea, congestion, sore throat, or otalgia. CARDIOVASCULAR: Denies chest pain, palpitations, or edema. RESPIRATORY: Denies cough or dyspnea. GASTROINTESTINAL: Denies abdominal pain, nausea, vomiting, or diarrhea. GENITOURINARY: Denies dysuria or hematuria. SKIN: Denies rash, wound, or itching. MUSCULOSKELETAL: Denies back pain, joint pain, or myalgia. Positive for left toe injury NEUROLOGIC: Denies headache, numbness, or weakness. PSYCHIATRIC: Denies anxiety or depression. All other systems reviewed are negative, except as documented in HPI. [facility] Past Medical History Medical History Post covid-19 condition, unspecified Acromioclavicular joint arthritis Distal clavicle excision with the rotator cuff repair June 29, 2022 PCOS (polycystic ovarian syndrome) Depression GERD (gastroesophageal reflux disease) Anxiety Obesity Surgical History Surgical History Hx of section Right rotator cuff tear Right rotator cuff repair with acromioplasty and distal clavicle excision June 29, 2022 Hx of cholecystectomy (~05/2019) History of surgery on arm As a child Labral tear of right hip joint Underwent surgical repair in 05/2009 History of carpal tunnel release of both wrists 05/2018 and 08/2018 Family History Family History Father Diabetes mellitus Family history of hypercholesterolemia Hypertension Family history of cardiovascular disease Acute myocardial infarction Mother Hypertension Grandparent Acute myocardial infarction, Onset Age: 39 Cerebrovascular accident Carcinoma of colon Family history of malignant neoplasm of breast Social History Social History Smoking status: Never smoker Alcohol intake: current Alcohol use details: Drinks 1 bottle of wine over 1 to 2 week time Substance use: former Substance use type: marijuana Other substance usage details: RARE EDIBLE Last use: 01/2022 Lack of Transportation: No Lack of Food: Never True Current Housing: I Have Housing Concerned About Future Housing: No Difficulty Paying Gas/Electric Bills: No Difficulty Paying for Meds: No Currently Unemployed: No Education: Master's Degree or Higher Difficulty w/ Childcare or Family Care: No Living arrangements: with family 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 There is no relevant family history pertinent to the patient complaint. Exam Narrative: GENERAL: This is a well-nourished, well-developed adult, in no apparent distress. They are non ill-appearing, nontoxic appearing. HEAD: normocephalic, atraumatic. EYES: Sclera clear/white. Vision is grossly intact. Conjunctiva normal. Extraocular movement intact. EARS: External ears normal Hearing grossly intact. NOSE: External nose normal THROAT: Mucous membranes moist NECK: Neck supple CARDIOVASCULAR: Regular rate and rhythm RESPIRATORY: Respiratory rate normal, respiratory effort nonlabored, no respiratory distress NEURO: awake, alert, and oriented to person, place and time. There were no obvious focal neurologic abnormalities. EXTREMITIES: Left foot: No obvious deformity, injury, swelling,, redness. Mild bruising to the proximal 1st toe. There is a small subungual hematoma present to the 1st toe. Normal range of motion. First toe tender to palpate throughout, 2nd toe is tender to palpate at the distal end. Nail bed and plates are intact. Capillary refill less than 3 seconds. Left pedal Pulse 2 +palpable. Normal sensation. Neurovascular status intact distal injury. Patient able to wiggle her toes. BACK: Nontender without deformity. Course Course Emergency Course: Portions of this record may have been created with voice recognition software Level of Care: Express Care Visit Vital Signs Vital signs: Vital Signs Temperature 98 F 01/31/25 15:04 Pulse Rate 96 01/31/25 15:04 Respiratory Rate 16 01/31/25 15:04 Blood Pressure 124/72 01/31/25 15:04 Pulse Oximetry 98 01/31/25 15:04 Temperature 98 F 01/31/25 15:04 Pulse Rate 96 01/31/25 15:04 Respiratory Rate 16 01/31/25 15:04 Blood Pressure 124/72 01/31/25 15:04 Pulse Oximetry 98 01/31/25 15:04 Reviewed MDM - Extremity Injury (Lower) MDM Narrative Medical decision making narrative: X-ray left foot negative for any fractures or acute findings. Likely crush injury to the 1st and 2nd toe. Patient has small subungual hematoma to the 1st toe, offered trephination to drainage and patient declined. Informed patient she has 48 hours to change her mind if she would like it drained or if it becomes worse. Offered patient postop shoe and declined. Discussed supportive care and rice therapy. Discussed physical exam findings. Advised supportive measures and signs/symptoms to go to the ER. Pt is appropriate for outpt treatment and f/u. Differential Diagnosis Differential diagnosis: Likely other (Toe contusion, toe sprain, crush injury, toe fracture, foot fracture, foot sprain, subungual hematoma) Imaging Data Radiologist's impression: ITS Impressions Foot X-Ray 01/31/25 15:25 Impression: No acute fracture or malalignment. Critical Care Time Critical Care Time Critical Care Time: No Discharge Plan Discharge Clinical Impression: Crush injury of toe Qualifiers: Encounter type: initial encounter Laterality: left Qualified Code(s): S97.102A - Crushing injury of unspecified left toe(s), initial encounter Subungual hematoma of great toe of left foot Qualifiers: Encounter type: initial encounter Qualified Code(s): S90.212A - Contusion of left great toe with damage to nail, initial encounter Patient Disposition: Home Condition: Stable Instructions: Subungual Hematoma (ED), Crush Injury (ED) Additional Instructions: The x-ray of your left foot negative for any fractures or acute findings. If you change your mind about having your subungual hematoma drained you have 48 hours from the injury to get it drained. Rest and elevate the leg; bear weight as tolerated Apply ice 15-20 minute intervals several times a day You may take ibuprofen 600 mg to 800 mg every 6-8 hours. Do not exceed more than 800 mg of ibuprofen per dose. Do not exceed more than 3200 mg ibuprofen in a day. You may take up to 1000 mg Tylenol every 6-8 hours. Do not exceed 1000 mg per dose, do exceed more than 4000 mg of Tylenol in a day. Follow up with your primary care provider as needed in 1-2 weeks especially if pain is persisting after 10 days. Patient Language: Croatian Prescriptions: No Action coenzyme Q10 [Co Q-10] 30 mg capsule 30 mg PO DAILY cyanocobalamin-liver extract Tablet PO cholecalciferol (vitamin D3) 50 mcg (2,000 unit) capsule 50 mcg PO DAILY [id number]-rdeqnohm-O-O-D-vob-herb 353 1,250 mcg-150 mg-225 mcg tablet,chewable PO Centrum 115 mcg-35 mg- 25 mg-5 mg tablet,chewable PO cyclobenzaprine 10 mg tablet 10 mg PO BID PRN (Reason: muscle spasm) Qty: 20 0RF hydroxyzine HCl 25 mg tablet 25 mg PO BID PRN (Reason: anxiety) Qty: 30 0RF Follow-up/Referrals: Alisa Hudson DO [Primary Care Provider, [facility]] Time of Disposition: 15:43
== END 2025-01-31 15:45 | disposition home or self-care (01) ==
PROVIDERS: PCP Family Medicine
DX: S97.102A Crushing injury of unspecified left toe(s), initial encounter (principal); S90.212A Contusion of left great toe with damage to nail, initial encounter; W22.8XXA Striking against or struck by other objects, initial encounter
CPT/HCPCS: 73630; 99213; G0463